=== PATIENT | female | born 1935 | race Caucasian/White ===

== ENCOUNTER 2023-06-27 10:40 | Outpatient (AMB) | payer MEDICARE, SELFPAY ==
--- NOTE | 2023-06-27 10:46 | A.OFFVIS_ITS ---
Intake Vital Signs 06/27/23 10:52 Height 5 ft 6 in Weight 169 lb BMI 27.3 BP 135/69 Blood Pressure Location Lt brachial Position Sitting Pulse 69 Intake Visit Reasons: Chronic Loose stool Intake Note: Yanelis presents in the office as a new patient. CC: Daughter states that she has been having severe diarrhea that has been happening since January. She states it will run through her and she will be constipated and then back to diarrhea. 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 Patient is a resident of a local detention. She resides in [facility]. Patient is accompanied by her daughter. Patient reports that since January of last year she had frequent episodes of loose stools. Patient reports that initially she had loose stools for several weeks. Was given Imodium 2 tabs which caused constipation and patient end up going to ER. Currently patient is not taking any fiber supplements. Tried Metamucil, however patient did not like the taste. Patient denies any melena, hematochezia, unintentional weight loss or ribbon like stools. Frequent loose stools, often associated with cramping like pain, stabbing and squeezing around her house [place]. Patient was diagnosed with diverticulitis in the past. Patient denies any nausea or vomiting. Patient reports that she has fair appetite. Upon reviewing patient's record from detention patient is taking Senokot 2 tablets every evening. She is not taking any fiber. 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 Review of Systems Const Denies weight gain and Denies weight loss ENT Reports no additional complaints, Denies dysphagia and Denies odynophagia Card Reports no additional complaints Resp Reports no additional complaints GI Reports abdominal pain (cramping), Denies belching, Denies melena, Reports bloating, Denies change in bowel habits, Denies dysphagia, Denies excessive flatus, Denies dyspepsia, Denies heartburn, Denies diarrhea, Reports loose stools, Denies nausea, Denies odynophagia and Denies vomiting Reports no additional complaints Musc Reports no additional complaints Neuro Reports no additional complaints Psych Reports no additional complaints Endo Reports no additional complaints Physical Exam Vital Signs: Last Vital Signs Pulse 69 06/27/23 10:52 BP 135/69 06/27/23 10:52 BMI result Body Mass Index 27.3 Const Other: Patient is sitting in a wheelchair General: healthy appearing, no acute distress and well developed Nutritional Appearance: well nourished Orientation/consciousness: patient oriented x3 HEENT Head: Yes normal to inspection, Yes normocephalic and Yes atraumatic Face and sinus: Yes normal facial exam Mouth: Normal oral and palatal mucosa present Throat: Yes posterior oropharynx normal, Yes tonsils normal and Yes uvula midline Eyes General: appearance normal, both eyes and all related structures Neck Neck: Yes normal visual inspection, Yes full ROM and Yes trachea midline Thyroid: Thyroid normal Resp Effort & Inspection: normal respiratory effort, able to speak in complete sentences, no tracheal deviation and symmetric chest movement Auscultation: clear to auscultation bilaterally Cardio Rate: regular rate GI Inspection: Yes normal to inspection and No distended Palpation (GI): Soft to palpation, not firm, nontender and No hepatosplenomegaly present Auscultation: Hyperactive bowel sounds present General: Yes no CVA tenderness Back/Spine/Pelvis Back: no CVA tenderness Skin General skin exam: elasticity normal, turgor normal and dry skin Neuro General: patient oriented x3 Psych Appearance: grossly normal Mental Status: mental status grossly normal Assessment & Plan Assessment & Plan (1) Diarrhea: Code(s): R19.7 - Diarrhea, unspecified Qualifiers: Diarrhea type: functional diarrhea Qualified Code(s): K59.1 - Functional diarrhea (2) Postprandial abdominal bloating: Code(s): R14.0 - Abdominal distension (gaseous) (3) IBS (irritable bowel syndrome): Code(s): K58.9 - Irritable bowel syndrome without diarrhea Qualifiers: Irritable bowel syndrome type: with both diarrhea and constipation Qualified Code(s): K58.2 - Mixed irritable bowel syndrome Plan Continue avoiding dietary triggers like lactose and some of the gluten products specially like bread. Patient will try cell or does bread. Low FODMAP diet discussed with patient. List of food recommended as well as list of food to avoid given to patient. Patient can continue taking Senokot at night time, however she will need to bulk her stools better. Most likely diarrhea caused by not enough fiber. History of diverticulosis/diverticulitis. Recommend to take fiber like Citrucel twice a day with breakfast and dinner to help her bulk stool. Recommendation also for probiotic that can be bought [id number]. Patient will return in 2 months, sooner on as needed basis. Both patient and her daughter are agreeable to plan of care and verbalizes understanding of instructions. They were given the opportunity to ask questions all questions answered. Thank you for allowing me to participate in her care Medications: New methylcellulose (laxative) (Citrucel) 500 mg PO BID 60 tabs 2RF Coding Level of Care Code New Pt Level 4 (00433) Diagnoses Functional diarrhea K59.1 Diarrhea type: functional diarrhea Postprandial abdominal bloating R14.0 Irritable bowel syndrome with both constipation and diarrhea K58.2 Irritable bowel syndrome type: with both diarrhea and constipation Time Spent (min) 45 Comment 30 minutes spent with pt and additional 15 min spent reviewing her records
[2023-06-27 10:52] VITALS: BP 135/69; PULSE 69; BMI 27.3
== END 2023-06-27 13:03 | disposition home or self-care (01) ==
PROVIDERS: PCP Internal Medicine; Visit Provider Nurse Practitioner Family
DX: K59.1 Functional diarrhea (principal); R14.0 Abdominal distension (gaseous); K58.2 Mixed irritable bowel syndrome
CPT/HCPCS: 99204

== ENCOUNTER → 2023-06-27 10:40 | Outpatient (BNVA) | payer MEDICARE, MEDICAID, SELFPAY | PROVIDERS: PCP Internal Medicine; Visit Provider Nurse Practitioner Family | DX: K59.1 Functional diarrhea (principal); K58.2 Mixed irritable bowel syndrome; R14.0 Abdominal distension (gaseous) | CPT/HCPCS: 99202 ==

== ENCOUNTER 2023-08-25 10:12 | Outpatient (REF) | payer MEDICARE, MEDICAID, SELFPAY ==
[2023-08-25 13:06] LABS: Vitamin B12 497 pg/mL (200-900)
[2023-08-30 06:24] LABS: Vitamin D 25-OH, D2 <4 ng/mL; Vitamin D 25-OH, D3 40 ng/mL; Vitamin D 25-OH, Total 40 ng/mL (30-100)
== END 2023-08-25 10:13 | disposition home or self-care (01) ==
LOC: HO.LAB 10:12
PROVIDERS: PCP Internal Medicine; Visit Provider Nurse Practitioner Family
DX: E55.9 Vitamin D deficiency, unspecified (principal); K21.9 Gastro-esophageal reflux disease without esophagitis; K59.1 Functional diarrhea; K58.0 Irritable bowel syndrome with diarrhea
CPT/HCPCS: 36415; 82306; 82607; 82746; 99212

== ENCOUNTER 2023-08-25 10:12 | Outpatient (AMB) | payer MEDICARE, MEDICAID, SELFPAY ==
--- NOTE | 2023-08-25 10:17 | MHC.OFFVIS ---
Intake Vital Signs 08/25/23 10:18 Height 5 ft 6 in BMI Reason not done Patient refused/unable BP 141/64 H Blood Pressure Location Lt brachial Position Sitting Pulse 64 Pulse Source Pulse Oximeter Intake Visit Reasons: follow up Intake Note: Patient here for f/u diarrhea. Last office visit 06-27-23. Taking citrucel. Patient c/o: She states she is still having diarrhea everyday multiple times a day and she doesn't think anything is helping. Pt denies any N/V. Accompanied by: Daughter Allergies oxycodone Allergy (Intermediate, Verified 08/25/23 10:21) shaking Penicillins Allergy (Mild, Verified 08/25/23 10:21) Unknown Sulfa (Sulfonamide Antibiotics) Allergy (Mild, Verified 08/25/23 10:21) Unknown HPI follow up HPI Details LAST VISIT: Diarrhea Postprandial abdominal bloating IBS (irritable bowel syndrome) Plan Continue avoiding dietary triggers like lactose and some of the gluten products specially like bread. Patient will try cell or does bread. Low FODMAP diet discussed with patient. List of food recommended as well as list of food to avoid given to patient. Patient can continue taking Senokot at night time, however she will need to bulk her stools better. Most likely diarrhea caused by not enough fiber. History of diverticulosis/diverticulitis. Recommend to take fiber like Citrucel twice a day with breakfast and dinner to help her bulk stool. Recommendation also for probiotic that can be bought [id number]. Patient will return in 2 months, sooner on as needed basis. Both patient and her daughter are agreeable to plan of care and verbalizes understanding of instructions. They were given the opportunity to ask questions all questions answered. ? Thank you for allowing me to participate in her care Medications New methylcellulose (laxative) (Citrucel) 500 mg PO BID 60 tabs 2RF TODAY'S VISIT Patient is here today for follow-up. Patient reports that she continues to have loose stools. Patient states that she woke up this morning and had diarrhea. Yesterday before noon time patient had several bowel movements. When reviewing patient's medication I noticed that she has been taking Colace and senna. Dulcolax is also on the list. Patient might be overmedicated with laxative. Patient denies any abdominal pain or discomfort. Takes PPI daily and her symptoms of acid reflux are suppressed. Patient denies dyspepsia, dysphagia or odynophagia. Denies melena, hematochezia, unintentional weight loss or ribbon like stools. Patient's only concern is frequent bowel movements. Last month patient was seen in the ER where she was told that this could be a viral component. Patient does not remember if she had CT scan or ultrasound down. Will get records. 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 Social History (Updated 08/25/23 @ 10:23 by Stefanie Pitts MA) Housing: [facility] Alcohol intake: never Patient Tobacco Use Status: Former Tobacco user Review of Systems Const Denies weight gain and Denies weight loss ENT Reports no additional complaints, Denies dysphagia and Denies odynophagia Card Reports no additional complaints Resp Reports no additional complaints GI Denies abdominal pain, Denies belching, Denies melena, Denies bloating, Denies change in bowel habits, Denies dysphagia, Denies excessive flatus, Denies dyspepsia, Denies heartburn, Reports diarrhea, Denies loose stools, Denies nausea, Denies odynophagia and Denies vomiting Reports no additional complaints Musc Reports no additional complaints Neuro Reports no additional complaints Psych Reports no additional complaints Endo Reports no additional complaints Physical Exam Vital Signs: Last Vital Signs Pulse 64 08/25/23 10:18 BP 141/64 H 08/25/23 10:18 Const Other: Patient is sitting in a wheelchair General: healthy appearing, no acute distress and well developed Nutritional Appearance: well nourished Orientation/consciousness: patient oriented x3 HEENT Head: Yes normal to inspection, Yes normocephalic and Yes atraumatic Face and sinus: Yes normal facial exam Mouth: Normal oral and palatal mucosa present Throat: Yes posterior oropharynx normal, Yes tonsils normal and Yes uvula midline Eyes General: appearance normal, both eyes and all related structures Neck Neck: Yes normal visual inspection, Yes full ROM and Yes trachea midline Thyroid: Thyroid normal Resp Effort & Inspection: normal respiratory effort, able to speak in complete sentences, no tracheal deviation and symmetric chest movement Auscultation: clear to auscultation bilaterally Cardio Rate: regular rate GI Inspection: Yes normal to inspection and No distended Palpation (GI): Soft to palpation, not firm, nontender and No hepatosplenomegaly present Auscultation: Hyperactive bowel sounds present General: Yes no CVA tenderness Back/Spine/Pelvis Back: no CVA tenderness Skin General skin exam: elasticity normal, turgor normal and dry skin Neuro General: patient oriented x3 Psych Appearance: grossly normal Mental Status: mental status grossly normal Assessment & Plan Assessment & Plan (1) GERD (gastroesophageal reflux disease): Code(s): K21.9 - Gastro-esophageal reflux disease without esophagitis Qualifiers: Esophagitis presence: esophagitis presence not specified Qualified Code(s): K21.9 - Gastro-esophageal reflux disease without esophagitis (2) Diarrhea: Code(s): R19.7 - Diarrhea, unspecified Qualifiers: Diarrhea type: functional diarrhea Qualified Code(s): K59.1 - Functional diarrhea (3) Postprandial abdominal bloating: Code(s): R14.0 - Abdominal distension (gaseous) (4) IBS (irritable bowel syndrome): Code(s): K58.9 - Irritable bowel syndrome without diarrhea Qualifiers: Irritable bowel syndrome type: with diarrhea Qualified Code(s): K58.0 - Irritable bowel syndrome with diarrhea Plan Patient will continue taking pantoprazole. Continue avoiding lactose. May introduce gluten as patient not having any change after stopping gluten. Please stop all of her likes it except for Citrucel. Increase fiber in her diet. Will do GI panel, C diff, check vitamin B12, folate, vitamin-D. I will see her in 2 months, sooner on as needed basis. Patient is agreeable to this plan and verbalizes understanding of instructions. She was given the opportunity to ask questions and all questions answered. Please get records from [facility] from her ER visit. Thank you for allowing me to participate in her care Orders: Orders Vitamin B12 and Folate Today R19.7 - Diarrhea, unspecified GI Panel Today R19.7 - Diarrhea, unspecified Vitamin D 25-OH (D2 and D3) Today E55.9 - Vitamin D deficiency, unspecified CDiff Gene PCR Today R19.7 - Diarrhea, unspecified Coding Level of Care Code Est Pt Level 3 (05354) Diagnoses Gastroesophageal reflux disease, unspecified whether esophagitis present K21.9 Esophagitis presence: esophagitis presence not specified Functional diarrhea K59.1 Diarrhea type: functional diarrhea Postprandial abdominal bloating R14.0 Irritable bowel syndrome with diarrhea K58.0 Irritable bowel syndrome type: with diarrhea Time Spent (min) 25 Comment 15 minutes spent with patient and additional 10 minutes spent reviewing her records
[2023-08-25 10:18] VITALS: BP 141/64; PULSE 64
== END 2023-08-25 10:48 | disposition home or self-care (01) ==
PROVIDERS: PCP Internal Medicine; Visit Provider Nurse Practitioner Family
DX: K21.9 Gastro-esophageal reflux disease without esophagitis (principal); K58.0 Irritable bowel syndrome with diarrhea
CPT/HCPCS: 99213

== ENCOUNTER 2023-10-27 10:38 | Outpatient (AMB) | payer MEDICARE, MEDICAID, SELFPAY ==
[2023-10-27 10:48] VITALS: BP 144/71; PULSE 84
--- NOTE | 2023-10-27 10:48 | MHC.OFFVIS ---
Vital Signs 10/27/23 10:48 Height 5 ft 6 in BP 144/71 H Blood Pressure Location Lt brachial Position Sitting Pulse 84 Intake Visit Reasons: 2 month follow up Intake Note: Patient presents to in office 2 months follow up of abdominal pain. CC: Patient c/o lower abdominal pain and constipation. Denies having any new GI symptoms today. Allergies oxycodone Allergy (Intermediate, Verified 10/27/23 10:52) shaking Penicillins Allergy (Mild, Verified 10/27/23 10:52) Unknown Sulfa (Sulfonamide Antibiotics) Allergy (Mild, Verified 10/27/23 10:52) Unknown HPI HPI 2 month follow up: Details: LAST VISIT: GERD (gastroesophageal reflux disease) Diarrhea Postprandial abdominal bloating IBS (irritable bowel syndrome) Plan Patient will continue taking pantoprazole. Continue avoiding lactose. May introduce gluten as patient not having any change after stopping gluten. Please stop all of her likes it except for Citrucel. Increase fiber in her diet. Will do GI panel, C diff, check vitamin B12, folate, vitamin-D. I will see her in 2 months, sooner on as needed basis. Patient is agreeable to this plan and verbalizes understanding of instructions. She was given the opportunity to ask questions and all questions answered. Please get records from [facility] from her ER visit. ? Thank you for allowing me to participate in her care Orders Orders Vitamin B12 and Folate Today R19.7 GI Panel Today R19.7 Vitamin D 25-OH (D2 and D3) Today E55.9 CDiff Gene PCR Today R19.7 TODAY'S VISIT Patient is here today for follow-up. Patient is accompanied by her daughter. Patient resides in the assisted in [place]. Reports that she has had issues with her bowels where she was having loose stools. Patient states that she only gets 1 Citrucel a day. This morning patient however received 2 Citrucel tablets. Patient's daughter reports that she noticed that her mom does not want to get dressed and participate in daily activities. Patient is afraid that she is going to have an accident. Patient reports that her stool sample was sent, however we have not received any results. All her blood work was done and it was all normal. Patient denies any melena, hematochezia, unintentional weight loss or ribbon like stools. Patient denies any dyspepsia, dysphagia or odynophagia. Denies any abdominal pain or discomfort. 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 Alcohol intake: never Patient Tobacco Use Status: Former Tobacco user Review of Systems Const Denies weight gain and Denies weight loss ENT Reports no additional complaints, Denies dysphagia and Denies odynophagia Card Reports no additional complaints Resp Reports no additional complaints GI Denies abdominal pain, Denies belching, Denies melena, Reports bloating, Reports constipation, Denies dysphagia, Denies excessive flatus, Denies dyspepsia, Denies heartburn, Reports diarrhea, Denies loose stools, Denies nausea, Denies odynophagia and Denies vomiting Reports no additional complaints Musc Reports no additional complaints Neuro Reports no additional complaints Psych Reports no additional complaints Endo Reports no additional complaints Physical Exam Vital Signs: Last Vital Signs Pulse 84 10/27/23 10:48 BP 144/71 H 10/27/23 10:48 Const Other: Patient is sitting in a wheelchair General: healthy appearing, no acute distress and well developed Nutritional Appearance: well nourished Orientation/consciousness: patient oriented x3 Resp Effort & Inspection: normal respiratory effort, able to speak in complete sentences, no tracheal deviation and symmetric chest movement Auscultation: clear to auscultation bilaterally Cardio Rate: regular rate GI Inspection: Yes normal to inspection and No distended Palpation (GI): Soft to palpation, not firm, nontender and No hepatosplenomegaly present Auscultation: Hyperactive bowel sounds present General: Yes no CVA tenderness Back/Spine/Pelvis Back: no CVA tenderness Skin General skin exam: elasticity normal, turgor normal and dry skin Neuro General: patient oriented x3 Psych Appearance: grossly normal Mental Status: mental status grossly normal Results Reviewed Results Reviewed: Laboratory Tests 08/25/23 11:22 Vitamin B12 497 25-OH Vitamin D Total 40 Folate 11.0 Assessment & Plan Assessment & Plan (1) GERD (gastroesophageal reflux disease): Code(s): K21.9 - Gastro-esophageal reflux disease without esophagitis Category: Medical Qualifiers: Esophagitis presence: esophagitis presence not specified Qualified Code(s): K21.9 - Gastro-esophageal reflux disease without esophagitis (2) Diarrhea: Code(s): R19.7 - Diarrhea, unspecified Qualifiers: Diarrhea type: functional diarrhea Qualified Code(s): K59.1 - Functional diarrhea (3) Postprandial abdominal bloating: Code(s): R14.0 - Abdominal distension (gaseous) (4) IBS (irritable bowel syndrome): Code(s): K58.9 - Irritable bowel syndrome without diarrhea Qualifiers: Irritable bowel syndrome type: with both diarrhea and constipation Qualified Code(s): K58.2 - Mixed irritable bowel syndrome Plan Continue Citrucel daily. Patient can start taking Senokot in the evening to help her move her bowels better. Increase fluid intake. Patient is mostly in her wheelchair. Discussed with patient trying to participate in activities at the assisted. Will call facility to obtain records from her stool studies. I assume they were all normal as patient was never placed on any antibiotic or informed of any abnormalities. Most likely patient has diarrhea is related to not enough fiber and actually being constipated. I will see patient in 6 weeks, sooner on as needed basis. Patient is agreeable to this plan and verbalizes understanding of instructions. She was given the opportunity to ask questions and all questions answered. Thank you for allowing me to participate in her care Medications: New sennosides (Natural Senna Laxative) 8.6 mg PO BEDTIME 90 tabs 3RF constipation K59.00 - Constipation, unspecified Coding Level of Care Code Est Pt Level 3 (63935) Diagnoses Gastroesophageal reflux disease, unspecified whether esophagitis present K21.9 Esophagitis presence: esophagitis presence not specified Functional diarrhea K59.1 Diarrhea type: functional diarrhea Postprandial abdominal bloating R14.0 Irritable bowel syndrome with both constipation and diarrhea K58.2 Irritable bowel syndrome type: with both diarrhea and constipation Time Spent (min) 30 Comment 20 minutes spent with patient and additional 10 minutes spent reviewing her records
== END 2023-10-27 11:34 | disposition home or self-care (01) ==
PROVIDERS: PCP Internal Medicine; Visit Provider Nurse Practitioner Family
DX: K21.9 Gastro-esophageal reflux disease without esophagitis (principal); K59.1 Functional diarrhea; R14.0 Abdominal distension (gaseous); K58.2 Mixed irritable bowel syndrome
CPT/HCPCS: 99213

== ENCOUNTER → 2023-10-27 10:38 | Outpatient (BNVA) | payer MEDICARE, MEDICAID, SELFPAY | PROVIDERS: PCP Internal Medicine; Visit Provider Nurse Practitioner Family | DX: K21.9 Gastro-esophageal reflux disease without esophagitis (principal); K59.1 Functional diarrhea; R14.0 Abdominal distension (gaseous); K58.2 Mixed irritable bowel syndrome; Z79.899 Other long term (current) drug therapy | CPT/HCPCS: 99212 ==

== ENCOUNTER 2023-12-04 11:07 | Outpatient (AMB) | payer MEDICARE, MEDICAID, SELFPAY ==
--- NOTE | 2023-12-04 11:16 | A.OFFVIS_ITS ---
Vital Signs 12/04/23 11:25 Height 5 ft 6 in Weight 176 lb BMI 28.4 BP 102/66 Blood Pressure Location Lt brachial Position Sitting Pulse 134 H Pulse Source Pulse Oximeter Pulse Oximetry (%) 96 Oxygen Delivery Method Room Air Comment Weight has not been completed for approx 1 month via usp. Intake Visit Reasons: 6 weeks IBS Intake Note: Yanelis presents to the office today for a scheduled 6 week FUV. CC: Pt was rx'd senna at their last visit. Pt reports that she has been dealing with increased constipation. Pt has been being monitored by nursing staff. Pt was given suppository yesterday by RN and did not result with any successful BM. Pt family reports last BM was approximately 4 days ago. 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 Patient can start taking Senokot in the evening to help her move her bowels better. Increase fluid intake. Patient is mostly in her wheelchair. Discussed with patient trying [facility]. Will call facility to obtain records from her stool studies. I assume they were all normal as patient was never placed on any antibiotic or informed of any abnormalities. Most likely patient has diarrhea is related to not enough fiber and actually being constipated. I will see patient in 6 weeks, sooner on as needed basis. Patient is agreeable to this plan and verbalizes understanding of instructions. She was given the opportunity to ask questions and all questions answered. ? Thank you for allowing me to participate in her care Medications New sennosides (Natural Senna Laxative) 8.6 mg PO BEDTIME 90 tabs 3RF constipation K59.00 TODAY'S VISIT Patient is here today for follow-up. Patient is accompanied by her 2 daughters. Patient reports that she continues to be constipated. Takes Senokot without improvement. Patient was given milk of magnesia and suppository and no BM for 5 days. Patient's daughters are concern as patient today looks very pale. Patient's heart rate is high in 140s. No documented history of AFib. Patient denies any blood in her stool. Denies any black stool. Denies any nausea or vomiting. Upper extremity edema noted. Right lower extremity mild edema greater than left. Tried vasovagal stimulation to decrease patient's heart rate without success. Lowest heart rate 136. Patient denies any shortness of breath, however respiratory 24. [facility] Medical History GERD (gastroesophageal reflux disease) Surgical History History of surgery on wrist Hx of bilateral hip replacements Hx of total knee replacement Social History Housing: Alf Alcohol intake: never Patient Tobacco Use Status: Former Tobacco user Review of Systems Const Denies weight gain and Denies weight loss ENT Reports no additional complaints, Denies dysphagia and Denies odynophagia Card Reports no additional complaints Resp Reports no additional complaints GI Denies abdominal pain, Denies belching, Denies melena, Denies bloating, Denies change in bowel habits, Reports constipation, Denies dysphagia, Denies excessive flatus, Denies dyspepsia, Denies heartburn, Denies diarrhea, Denies loose stools, Denies nausea, Denies odynophagia and Denies vomiting Reports no additional complaints Musc Reports no additional complaints Neuro Reports no additional complaints Psych Reports no additional complaints Endo Reports no additional complaints Physical Exam Vital Signs: Last Vital Signs Pulse 134 H 12/04/23 11:25 BP 102/66 12/04/23 11:25 Pulse Ox 96 12/04/23 11:25 Oxygen Delivery Method Room Air 12/04/23 11:25 BMI result Body Mass Index 28.4 Const Other: Patient is sitting in a wheelchair, pale General: no acute distress and well developed Nutritional Appearance: well nourished Orientation/consciousness: patient oriented x3 Resp Effort & Inspection: normal respiratory effort, able to speak in complete sentences, no tracheal deviation and symmetric chest movement Auscultation: clear to auscultation bilaterally Cardio Rate: tachycardic (138-142) GI Inspection: Yes normal to inspection and No distended Palpation (GI): Soft to palpation, not firm, nontender and No hepatosplenomegaly present Auscultation: Hyperactive bowel sounds present General: Yes no CVA tenderness Back/Spine/Pelvis Back: no CVA tenderness Skin General skin exam: elasticity normal, turgor normal and dry skin Neuro General: patient oriented x3 Psych Appearance: grossly normal Mental Status: mental status grossly normal Assessment & Plan Assessment & Plan (1) GERD (gastroesophageal reflux disease): Code(s): K21.9 - Gastro-esophageal reflux disease without esophagitis Category: Medical Qualifiers: Esophagitis presence: esophagitis presence not specified Qualified Code(s): K21.9 - Gastro-esophageal reflux disease without esophagitis (2) Postprandial abdominal bloating: Code(s): R14.0 - Abdominal distension (gaseous) (3) IBS (irritable bowel syndrome): Code(s): K58.9 - Irritable bowel syndrome without diarrhea Qualifiers: Irritable bowel syndrome type: with constipation Qualified Code(s): K58.1 - Irritable bowel syndrome with constipation (4) Constipation: Code(s): K59.00 - Constipation, unspecified Qualifiers: Constipation type: slow transit constipation Qualified Code(s): K59.01 - Slow transit constipation (5) Pale discoloration of skin of entire body: Code(s): L81.9 - Disorder of pigmentation, unspecified (6) Tachycardia: Code(s): R00.0 - Tachycardia, unspecified Plan Patient was sent to ED. patient looks pale, heart rate 136-147. No known history of AFib. Concern for anemia. Patient will eventually need to go for colonoscopy. Edema noted to upper extremities as well as bilateral lower extremity right greater than left. Reports to Brigido gillespie RN, patient was brought to ED by certified ophthalmic medical technician. Patient will return to the office in 3 m ont, sooner on as needed basis. She is agreeable to this plan and verbalizes understanding of instructions. She was given the opportunity to ask questions and all questions answered. Thank you for allowing me to participate in her care Medications: New docusate sodium 100 mg PO BID 180 caps 3RF Changed From sennosides (Natural Senna Laxative) 8.6 mg PO BEDTIME 90 tabs 3RF constipation K59.00 - Constipation, unspecified To sennosides (Natural Senna Laxative) 17.2 mg (2 x 8.6 mg) PO BEDTIME 180 tabs 3RF constipation K59.00 - Constipation, unspecified Coding Level of Care Code Est Pt Level 4 (90286) Diagnoses Gastroesophageal reflux disease, unspecified whether esophagitis present K21.9 Esophagitis presence: esophagitis presence not specified Postprandial abdominal bloating R14.0 Irritable bowel syndrome with constipation K58.1 Irritable bowel syndrome type: with constipation Slow transit constipation K59.01 Constipation type: slow transit constipation Pale discoloration of skin of entire body L81.9 Tachycardia R00.0 Time Spent (min) 40 Comment 25 minutes spent with patient and additional 15 minutes spent reviewing her records
[2023-12-04 11:25] VITALS: BP 102/66; PULSE 134; O2SAT 96; BMI 28.4
== END 2023-12-04 11:50 | disposition home or self-care (01) ==
PROVIDERS: PCP Internal Medicine; Visit Provider Nurse Practitioner Family
DX: K21.9 Gastro-esophageal reflux disease without esophagitis (principal); R14.0 Abdominal distension (gaseous); K58.1 Irritable bowel syndrome with constipation; K59.01 Slow transit constipation; L81.9 Disorder of pigmentation, unspecified; R00.0 Tachycardia, unspecified
CPT/HCPCS: 99214

== ENCOUNTER 2023-12-04 11:50 | Inpatient (IN) | payer MEDICARE, MEDICAID, SELFPAY ==
--- NOTE | ~2023-12-04 | CT_ITS ---
EXAMINATION: CT ANGIOGRAM OF THE CHEST WITH AND WITHOUT CONTRAST (CT PULMONARY ANGIOGRAM FOR PE) CLINICAL INFORMATION: Reason for Exam Sinus tachycardia COMPARISON: None available. TECHNIQUE: Prior to contrast administration, noncontrast localization images were obtained. Subsequently, multidetector volumetric imaging was performed from the thoracic inlet to below the diaphragms following the administration of 85 mL Omnipaque 350 intravenous contrast. No contrast reaction reported Sagittal, coronal, and MIP oblique sagittal reformatted images were obtained on the CT workstation, uploaded to PACS, and reviewed. This CT examination was performed using dose optimization techniques as appropriate, variously including the following: *Automated exposure control *Adjustment of mA and/or kV according to patient size (this includes techniques or standardized protocols for targeted exams where dose is matched to indication/reason for exam; i.e. extremities or head) *Use of iterative reconstruction technique Total exam dose-length product 666 mGy-cm FINDINGS: QUALITY OF STUDY/CONTRAST BOLUS: Satisfactory. PULMONARY ARTERIES: No pulmonary emboli. THORACIC AORTA: No aneurysm. LUNG: Moderate emphysematous changes are seen along with a saber-sheath trachea and mild diffuse bronchial thickening. There is a single 4 mm nodule seen in the right middle lobe (9:217). No focal consolidation, worrisome nodules or masses. PLEURA: No pleural effusion or pneumothorax. MEDIASTINUM: Normal heart size. No pericardial effusion. No hilar or mediastinal lymphadenopathy. No evidence of septal bowing or right heart strain. CORONARY ARTERY CALCIFICATION: Moderate CHEST WALL/AXILLA: No axillary or internal mammary lymphadenopathy. OSSEOUS STRUCTURES: There is a compression fracture of the superior endplate of T12. Kyphoplasty changes seen at T5, T7 and T8 mild compression fracture of T4. UPPER ABDOMEN: There are bilateral water density benign adrenal adenomas. There is a benign right renal cyst which needs no follow-up and cholecystectomy. Please see report of CT abdomen and pelvis performed contemporaneously. No reflux of contrast into the hepatic veins to suggest elevated right heart pressures. CT/CT angio chest PE protocol IMPRESSION: 1. No evidence of pulmonary emboli. 2. Moderate emphysema with saber-sheath trachea and mild diffuse bronchial thickening. 3. 4 mm right middle lobe nodule. 4. Bilateral benign adrenal adenomas. VTE: negative.
--- NOTE | ~2023-12-04 | CT_ITS ---
EXAMINATION: CT ABDOMEN AND PELVIS WITH CONTRAST CLINICAL INFORMATION: Sinus tachycardia COMPARISON: None available. TECHNIQUE: Multidetector volumetric images were obtained from the superior aspect of the liver through the pubic symphysis following administration 85 mL of Omnipaque 350 intravenous contrast. Sagittal and coronal reformatted images were obtained on the technologist's workstation. Oral contrast: No This CT examination was performed using dose optimization techniques as appropriate, variously including the following: *Automated exposure control *Adjustment of mA and/or kV according to patient size (this includes techniques or standardized protocols for targeted exams where dose is matched to indication/reason for exam; i.e. extremities or head) *Use of iterative reconstruction technique DLP: 313 mGy-cm FINDINGS: LUNG BASES: See CT chest performed contemporaneously LIVER, GALLBLADDER, AND BILIARY TREE: The liver is normal in size, shape, and attenuation. No focal hepatic lesion or biliary ductal dilatation is present. Status post cholecystectomy. PANCREAS: Unremarkable. SPLEEN: Unremarkable. ADRENAL GLANDS: There are bilateral adrenal masses seen measuring about 2 cm in size each. On the chest CT these measure water density although on the current study they measure higher secondary to portal venous phase imaging. These are consistent with benign adenomas and need no additional imaging or follow-up. KIDNEYS AND URETERS: The kidneys are normal in size, shape, and attenuation. No hydronephrosis, hydroureter, or calculi seen. No perinephric stranding. BLADDER: Unremarkable. GASTROINTESTINAL TRACT: The small and large bowel are unremarkable. The appendix is not seen but there is no evidence of appendicitis evidence of appendicitis. ABDOMINAL WALL: No significant hernia is appreciated. LYMPH NODES: No retroperitoneal lymphadenopathy. VASCULAR: Calcific atherosclerotic changes are present in the aorta and iliofemoral vessels. There is no evidence of an abdominal aortic aneurysm. PELVIC VISCERA: The uterus and adnexa are unremarkable. OSSEOUS STRUCTURES: Degenerative changes are seen from L4 through S1. Kyphoplasty cement is present L2 and L3. There are compression fractures superior endplates of T12 and L1. Bilateral total hip prostheses are present. No acute fractures. CT/CT abdomen pelvis w IV con IMPRESSION: 1. A cause for the patient's sinus tachycardia has not been found. 2. Incidental note made of benign adrenal adenomas, cholecystectomy, degenerative changes in the spine with kyphoplasty changes and bilateral total hip prostheses. Fleischner guidelines were followed.
--- NOTE | 2023-12-04 11:53 | ECG_ITS ---
Test Reason : TACHYCARDIA Blood Pressure : / mmHG Vent. Rate : 137 BPM Atrial Rate : 137 BPM P-R Int : 178 ms QRS Dur : 126 ms QT Int : 274 ms P-R-T Axes : 063 -02 165 degrees QTc Int : 413 ms Atrial flutter with 2 to 1 block versus Atrial tachycardia Left atrial enlargement Left bundle branch block Abnormal ECG No previous ECGs available Referred By: Generic ED Physician Electronically Signed By:MARICRUZ SAWYER MD
[2023-12-04 12:07] VITALS: BP 84/59; PULSE 134; RESP 16; TEMP 36.6; O2SAT 98; BMI 27.6
--- NOTE | 2023-12-04 12:07 | ED_ITS ---
HPI - Weakness General Chief complaint: Arrhythmia/Palpitations Stated complaint: trans from gastro pt in tachycardia Time Seen by Provider: 12/04/23 12:08 History of Present Illness ED Provider: Dr. Fay HPI Narrative: 88 y/o F patient; PMH paroxysmal atrial fibrillation (not on anticoagulation or rate control), HTN, HLD, COPD (ex-smoker); presents from routine GI appointment for constipation with report of tachycardia, fatigue/weakness, and pallor. The patient states since June she has unintentionally lost approx 15lb. She states she has noticed a sharp decline in her appetite during this time. She endorses a constant feeling of the need to defecate without the ability to have a bowel movement. Last bowel movement was small 4 days ago. She denies noticing any melena or hematochezia. She denies hx of GI bleed. Last colonoscopy was over 30 years ago. Otherwise reports occasional right upper quadrant abdominal discomfort. Hx cholecystectomy and appendectomy. Code Status: DNR/DNI Related Data Home Medications ?Medication ?Instructions ?Recorded ?Confirmed acetaminophen 500 mg tablet 500 mg PO Q6H PRN 06/27/23 alendronate 70 mg tablet 70 mg PO QWEEK 06/27/23 aluminum-mag hydroxide-simethicone 10 ml PO QID PRN 06/27/23 200 mg-200 mg-20 mg/5 mL oral susp amlodipine 5 mg tablet 5 mg PO DAILY 06/27/23 calcium phos,tribasic 260 mg-D3 25 tab PO 06/27/23 mcg-herbal 50 mg chewable tablet (Alive Calcium-Vitamin D3) clonazepam 1 mg tablet 1 mg PO BID 06/27/23 furosemide 20 mg tablet 20 mg PO DAILY 06/27/23 gabapentin 100 mg capsule 100 mg PO TID 06/27/23 lisinopril 30 mg tablet 30 mg PO DAILY 06/27/23 magnesium hydroxide 400 mg/5 mL 5 ml PO BEDTIME 06/27/23 oral suspension (Milk of Magnesia) melatonin 3 mg capsule 3 mg PO BEDTIME PRN 06/27/23 mirtazapine 7.5 mg tablet 7.5 mg PO BEDTIME 06/27/23 nystatin 100,000 unit/gram topical 1 appl topical BID 06/27/23 cream pantoprazole 20 mg tablet,delayed 20 mg PO DAILY 06/27/23 release salmeterol 50 mcg/dose blister 1 inh inhalation BID 06/27/23 powder for inhalation (Serevent Diskus) simvastatin 20 mg tablet 20 mg PO BEDTIME 06/27/23 hydroxyzine HCl 25 mg tablet 25 mg PO TID 08/25/23 nortriptyline 10 mg capsule 10 mg PO BEDTIME 08/25/23 nortriptyline 25 mg capsule 25 mg PO BEDTIME 08/25/23 nystatin 100,000 unit/gram topical 1 appl topical BID-TID 08/25/23 powder peg [id number] 1 1 drp ophthalmic (eye) BID-QID PRN 08/25/23 %-0.2 %-0.2 % eye drops (Artificial Tears ([id number])) albuterol sulfate 90 mcg/actuation inhalation 12/04/23 aerosol inhaler Previous Rx's ?Medication ?Instructions ?Recorded methylcellulose (laxative) 500 mg 500 mg PO BID #60 tabs 06/27/23 tablet (Citrucel) methylcellulose (laxative) 2 g PO BID #479 grams 07/05/23 (Citrucel Sugar Free oral powder) docusate sodium 100 mg capsule 100 mg PO BID #180 caps 12/04/23 sennosides 8.6 mg tablet (Natural 17.2 mg (2 x 8.6 mg) PO BEDTIME 12/04/23 Senna Laxative) constipation #180 tabs Allergies Allergy/AdvReac Type Severity Reaction Status Date / Time oxycodone Allergy Intermediate shaking Verified 12/04/23 12:11 Penicillins Allergy Mild Unknown Verified 12/04/23 12:11 Sulfa (Sulfonamide Allergy Mild Unknown Verified 12/04/23 12:11 Antibiotics) Review of Systems 2 Review of Systems: Yes all other systems are reviewed and are negative PMFSH Past Medical History Attestation statement: The following information was validated with the patient. Source: unable to obtain Medical History GERD (gastroesophageal reflux disease) Surgical History History of surgery on wrist Hx of bilateral hip replacements Hx of total knee replacement Social History Social History Housing: [facility] Alcohol intake: never Patient Tobacco Use Status: Former Tobacco user Advance Directives: Yes Advance Directives Information Provided: No Advance Directives on File: No Physical Exam 2 Vital Signs: Vital Signs: Last Vital Signs Temp 97.1 F 12/04/23 15:28 Pulse 86 12/04/23 15:28 Resp 16 12/04/23 15:28 BP 135/84 12/04/23 15:28 Pulse Ox 98 12/04/23 15:28 O2 Del Method Room Air 12/04/23 15:28 BMI result Body Mass Index 27.6 Patient is in a rapid tachycardia, normotensive (though initially hypotensive in triage), and afebrile. Const: Other: Pale in appearance HEENT: Head: Yes normal to inspection and Yes atraumatic Eyes: General: appearance normal, both eyes and all related structures P upils: Equal, round and reactive pupils present EOM: EOMs intact bilaterally Neck: Neck: Yes normal visual inspection, Yes full ROM, Yes supple and No tender Chest: Chest palpation & inspection: normal inspection of the chest and normal palpation of entire chest wall Resp: Effort & Inspection: normal respiratory effort, no cough and no respiratory distress Auscultation: clear to auscultation bilaterally Cardio: Rate: tachycardic Rhythm: regular rhythm Peripheral pulses: P eripheral pulses 2+ throughout GI: Other: Mild epigastric abdominal tenderness Inspection: No distended Palpation (GI): Soft to palpation, not firm, Tenderness to palpation present (GI), no guarding and not rigid Auscultation: normal bowel sounds : General: Yes no CVA tenderness Back/Spine/Pelvis: Back: no CVA tenderness Neuro: Cranial nerves: Yes Equal, round and reactive pupils present Course Course Course Narrative: This is a rapid medical exam completed by Skye ABADN: Additional HPI, ROS, PE not included below will be deferred to primary provider. From the GI office for concerns for hypotension, weakness, and high heart rate. Several days of constipation. Suppository given yesterday with no bowel movement. States that she has been feeling unwell for the last two weeks and feels like she has to move her bowels. C/O RUQ abdominal pain, s/p cholecystectomy and appendectomy Reevaluation(s) Reevaluation #1: Patient seen immediately. Ordered for 1L IVF. Patient's BP improved to 120s systolic on stretcher, continues to have HR ST versus a flutter versus 2:1 block in the 130s. Ordered for laboratory studies, CXR, and CTA Chest with run-off Abdomen/Pelvis. Patient and daughters at bedside confirm patient is DNR/DNI. Time: 14:17 Reevaluation #2: Patient re-evaluated, now in irregular rhythm without tachycardia. Laboratory studies with: Elevated troponin - suspect demand 2/2 to rate. Patient without chest pain or SOB. Still with generalized fatigue/weakness. Remainder of labs unremarkable. CTA Chest with Abdomen/Pelvis without significant abnormalities. Second troponin continues to rise slightly- provided ASA 324mg PO. Discussed with Cardiology possible atrial tachycardia versus 2:1 a flutter - recommend ECHO, cardizem, and eliquis. Plan: Admit for ACS work up Condition: Stable Medications Administered Discontinued Medications Generic Name Dose Route Start Last Admin Trade Name Freq PRN Reason Stop Dose Admin Aspirin 324 mg 12/04/23 15:11 12/04/23 15:38 Aspirin 81 Mg Tab.Chew PO 12/04/23 15:12 324 mg ONCE ONE Administration Sodium Chloride 1,000 mls @ 999 mls/hr 12/04/23 12:15 12/04/23 15:13 Ns IV 12/04/23 13:15 Infused .Q1H1M STEPHANIE Infusion Medical Decision Making Lab Data 12/04/23 12:34 12/04/23 12:34 Labs: Lab Results 12/04/23 12/04/23 12/04/23 Range/Units 12:34 12:46 14:39 WBC 8.9 (4.8-10.8) X10*3/uL RBC 4.55 (4.20-5.50) X10*6/uL Hgb 14.8 (12.0-16.0) g/dl Hct 42.1 (37.0-47.0) % MCV 92.5 (80.0-98.0) fL MCH 32.5 (27.0-33.0) pg MCHC 35.2 H (31.0-35.0) g/dl RDW 12.9 (11.0-16.0) % Plt Count 213 (160-400) X10*3/uL MPV 10.0 (9.4-12.3) fL Immature Gran % (Auto) 0.3 (0.0-0.4) % Neut % (Auto) 72.0 (45-73) % Lymph % (Auto) 20.5 (20-40) % Wheeler % (Auto) 5.7 (2-11) % Eos % (Auto) 0.6 (0-4) % Baso % (Auto) 0.9 (0-2) % Lymph # (Auto) 1.8 (1.2-4.9) X10*3/uL Wheeler # (Auto) 0.5 (0.1-1.2) X10*3/uL Eos # (Auto) 0.1 (0.0-0.4) X10*3/uL Baso # (Auto) 0.1 (0.0-0.2) X10*3/uL Abs Immat Gran (auto) 0.03 (0.00-0.03) X10*3/uL Absolute Neuts (auto) 6.4 (2.0-8.3) x10*3/uL Absolute Nucleated RBC 0.000 (0.0-0.012) X10*3/uL Nucleated RBC % (auto) 0.0 (0.0-0.2) /100WBC Sodium 131 L (135-145) mmol/L Potassium 4.7 (3.3-5.1) mmol/L Chloride 96 (96-108) mmol/L Carbon Dioxide 26 (22-29) mmol/L Anion Gap 14 (12-20) BUN 9 (9-16) mg/dL Creatinine 0.71 (0.5-1.4) mg/dL Estim Creat Clear Calc 59.5 Estimated GFR > 60 Random Glucose 104 (60-115) mg/dL Lactic Acid 1.6 (0.5-2.0) mmol/L Calcium 9.6 (8.4-10.2) mg/dL Magnesium 2.0 (1.6-2.6) mg/dL Total Bilirubin 1.0 (0.0-1.0) mg/dL Direct Bilirubin 0.3 (0.0-0.5) mg/dL AST 25 (5-31) U/L ALT 15 (0-31) U/L Alkaline Phosphatase 80 (39-117) U/L Troponin I High Sens 20.6 H 25.4 H (<3.5-17.0) ng/L B-Natriuretic Peptide 146 H (<100) pg/mL Total Protein 8.2 H (6.5-8.0) g/dL Albumin 4.3 (3.5-5.0) g/dL Lipase 34 (8-78) U/L Influenza Type A (PCR) NEGATIVE (Negative) Influenza Type B (PCR) NEGATIVE (Negative) RSV RNA Qual (PCR) NEGATIVE (Negative) SARS-CoV-2 RNA (RT-PCR) NEGATIVE (Negative) Independent Interpretation I performed an independent interpretation of an: EKG Interpretation: ST 137BPM with LBBB, no prior EKG for comparison Radiology Impression Discussion of test interpretation with radiology: I have reviewed the radiologist's reading. Radiologist Impression: EXAMINATION: CT ANGIOGRAM OF THE CHEST WITH AND WITHOUT CONTRAST (CT PULMONARY ANGIOGRAM FOR PE) CLINICAL INFORMATION: Reason for Exam Sinus tachycardia COMPARISON: None available. TECHNIQUE: Prior to contrast administration, noncontrast localization images were obtained. Subsequently, multidetector volumetric imaging was performed from the thoracic inlet to below the diaphragms following the administration of 85 mL Omnipaque 350 intravenous contrast. No contrast reaction reported Sagittal, coronal, and MIP oblique sagittal reformatted images were obtained on the CT workstation, uploaded to PACS, and reviewed. This CT examination was performed using dose optimization techniques as appropriate, variously including the following: *Automated exposure control *Adjustment of mA and/or kV according to patient size (this includes techniques or standardized protocols for targeted exams where dose is matched to indication/reason for exam; i.e. extremities or head) *Use of iterative reconstruction technique Total exam dose-length product 666 mGy-cm FINDINGS: QUALITY OF STUDY/CONTRAST BOLUS: Satisfactory. PULMONARY ARTERIES: No pulmonary emboli. THORACIC AORTA: No aneurysm. LUNG: Moderate emphysematous changes are seen along with a saber-sheath trachea and mild diffuse bronchial thickening. There is a single 4 mm nodule seen in the right middle lobe (9:217). No focal consolidation, worrisome nodules or masses. PLEURA: No pleural effusion or pneumothorax. MEDIASTINUM: Normal heart size. No pericardial effusion. No hilar or mediastinal lymphadenopathy. No evidence of septal bowing or right heart strain. CORONARY ARTERY CALCIFICATION: Moderate CHEST WALL/AXILLA: No axillary or internal mammary lymphadenopathy. OSSEOUS STRUCTURES: There is a compression fracture of the superior endplate of T12. Kyphoplasty changes seen at T5, T7 and T8 mild compression fracture of T4. UPPER ABDOMEN: There are bilateral water density benign adrenal adenomas. There is a benign right renal cyst which needs no follow-up and cholecystectomy. Please see report of CT abdomen and pelvis performed contemporaneously. No reflux of contrast into the hepatic veins to suggest elevated right heart pressures. CT/CT angio chest PE protocol IMPRESSION: 1. No evidence of pulmonary emboli. 2. Moderate emphysema with saber-sheath trachea and mild diffuse bronchial thickening. 3. 4 mm right middle lobe nodule. 4. Bilateral benign adrenal adenomas. VTE: negative. EXAMINATION: CT ABDOMEN AND PELVIS WITH CONTRAST CLINICAL INFORMATION: Sinus tachycardia COMPARISON: None available. TECHNIQUE: Multidetector volumetric images were obtained from the superior aspect of the liver through the pubic symphysis following administration 85 mL of Omnipaque 350 intravenous contrast. Sagittal and coronal reformatted images were obtained on the technologist's workstation. Oral contrast: No This CT examination was performed using dose optimization techniques as appropriate, variously including the following: *Automated exposure control *Adjustment of mA and/or kV according to patient size (this includes techniques or standardized protocols for targeted exams where dose is matched to indication/reason for exam; i.e. extremities or head) *Use of iterative reconstruction technique DLP: 313 mGy-cm FINDINGS: LUNG BASES: See CT chest performed contemporaneously LIVER, GALLBLADDER, AND BILIARY TREE: The liver is normal in size, shape, and attenuation. No focal hepatic lesion or biliary ductal dilatation is present. Status post cholecystectomy. PANCREAS: Unremarkable. SPLEEN: Unremarkable. ADRENAL GLANDS: There are bilateral adrenal masses seen measuring about 2 cm in size each. On the chest CT these measure water density although on the current study they measure higher secondary to portal venous phase imaging. These are consistent with benign adenomas and need no additional imaging or follow-up. KIDNEYS AND URETERS: The kidneys are normal in size, shape, and attenuation. No hydronephrosis, hydroureter, or calculi seen. No perinephric stranding. BLADDER: Unremarkable. GASTROINTESTINAL TRACT: The small and large bowel are unremarkable. The appendix is not seen but there is no evidence of appendicitis evidence of appendicitis. ABDOMINAL WALL: No significant hernia is appreciated. LYMPH NODES: No retroperitoneal lymphadenopathy. VASCULAR: Calcific atherosclerotic changes are present in the aorta and iliofemoral vessels. There is no evidence of an abdominal aortic aneurysm. PELVIC VISCERA: The uterus and adnexa are unremarkable. OSSEOUS STRUCTURES: Degenerative changes are seen from L4 through S1. Kyphoplasty cement is present L2 and L3. There are compression fractures superior endplates of T12 and L1. Bilateral total hip prostheses are present. No acute fractures. CT/CT abdomen pelvis w IV con IMPRESSION: 1. A cause for the patient's sinus tachycardia has not been found. 2. Incidental note made of benign adrenal adenomas, cholecystectomy, degenerative changes in the spine with kyphoplasty changes and bilateral total hip prostheses. Fleischner guidelines were followed. Discharge Plan Discharge Clinical Impression: Tachycardia, Elevated troponin Patient Disposition: Admitted As Inpatient Print Language: Hungarian
[2023-12-04] MEDS: 0.9 % Sodium Chloride 1,000 ML 999 ML IV (12:39)
[2023-12-04 12:40] LABS: MANUAL DIFF FLAG NO
[2023-12-04 12:42] LABS: Basophils Absolute Auto 0.1 X10*3/uL (0.0-0.2); Basophils Percent Auto 0.9 % (0-2); Eosinophils Absolute Auto 0.1 X10*3/uL (0.0-0.4); Eosinophils Percent Auto 0.6 % (0-4); Hematocrit 42.1 % (37.0-47.0); Hemoglobin 14.8 g/dl (12.0-16.0); Imm Gran Abs Auto 0.03 X10*3/uL (0.00-0.03); Imm Gran Pct Auto 0.3 % (0.0-0.4); Lymphocytes Absolute Auto 1.8 X10*3/uL (1.2-4.9); Lymphocytes Percent Auto 20.5 % (20-40); Mean Corpuscular HGB Conc 35.2 g/dl (31.0-35.0); Mean Corpuscular Hemoglobin 32.5 pg (27.0-33.0); Mean Corpuscular Volume 92.5 fL (80.0-98.0); Monocytes Absolute Auto 0.5 X10*3/uL (0.1-1.2); Monocytes Percent Auto 5.7 % (2-11); Neutrophils Absolute Auto 6.4 x10*3/uL (2.0-8.3); Platelet Count 213 X10*3/uL (160-400); Red Blood Count 4.55 X10*6/uL (4.20-5.50); Red Cell Distribution Width 12.9 % (11.0-16.0); White Blood Count 8.9 X10*3/uL (4.8-10.8)
[2023-12-04 12:54] LABS: Lactic Acid 1.6 mmol/L (0.5-2.0)
[2023-12-04 12:59] LABS: Alanine Aminotransferase 15 U/L (0-31); Albumin Level 4.3 g/dL (3.5-5.0); Alkaline Phosphatase 80 U/L (39-117); Anion Gap 14 (12-20); Aspartate Amino Transferase 25 U/L (5-31); Bilirubin Direct 0.3 mg/dL (0.0-0.5); Blood Urea Nitrogen 9 mg/dL (9-16); Calcium 9.6 mg/dL (8.4-10.2); Carbon Dioxide 26 mmol/L (22-29); Chloride 96 mmol/L (96-108); Creatinine Clr Calc Pharmacy 59.5; Estimated Glomerular Filt Rate > 60; Glucose Random 104 mg/dL (60-115); Lipase 34 U/L (8-78); Potassium 4.7 mmol/L (3.3-5.1); Sodium 131 mmol/L (135-145); Total Protein 8.2 g/dL (6.5-8.0)
[2023-12-04 13:04] LABS: Troponin-I High Sensitivity 20.6 ng/L (<3.5-17.0)
--- NOTE | 2023-12-04 13:53 | PC.NURSE ---
patient noted to have converted out of SVT to normal sinus rhythm rate in the 80s
[2023-12-04 13:54] LABS: Influenza A PCR NEGATIVE (Negative); Influenza B PCR NEGATIVE (Negative); Resp Syncy Virus RNA Qual PCR NEGATIVE (Negative); SARS COV2 PCR INHOUSE NEGATIVE (Negative)
--- NOTE | 2023-12-04 14:16 | ECG_ITS ---
Test Reason : CHANGE IN RHYTM Blood Pressure : / mmHG Vent. Rate : 075 BPM Atrial Rate : 075 BPM P-R Int : 164 ms QRS Dur : 130 ms QT Int : 416 ms P-R-T Axes : 049 001 170 degrees QTc Int : 464 ms Sinus rhythm with Premature supraventricular complexes Left bundle branch block Abnormal ECG When compared with ECG of 04-DEC-2023 11:57, Premature supraventricular complexes are now Present Vent. rate has decreased BY [address] less depressed in Lateral leads Referred By: Osiris Fay Electronically Signed By:Davis Bonilla
[2023-12-04 14:53] LABS: B Type Natriuretic Peptide 146 pg/mL (<100)
[2023-12-04 15:09] LABS: Troponin-I High Sensitivity 25.4 ng/L (<3.5-17.0)
[2023-12-04 15:28] VITALS: BP 135/84; PULSE 86; RESP 16; TEMP 36.2; O2SAT 98
[2023-12-04] MEDS: Aspirin 81 MG TAB.CHEW 324 MG PO (15:38)
--- NOTE | 2023-12-04 15:52 | PC.NURSE ---
patient found to be incontinent of urine, patient cleand up, new pads and blankets. purewick in place
--- NOTE | 2023-12-04 16:44 | P.HPHOSP_ITS ---
History of Present Illness Date of Service: 12/04/23 Attending physician on admission: Basilio Triplett Chief Complaint: weakness, fatigue, constipation 88 year old female with history of gerd, unspecified HF, htn, hld, copd presented to the ED from GI office where she was being seen for chronic alternating diarrhea/constipation. While in GI, pt was noted to be pale and hypotensive to 86/49 with HR 130s-140s. The patient reports she has been feeling generally unwell for several months, depressed, not coming out of her room [facility] at the [facility]. She had been having 4-5 episodes of diarrhea daily but now experiencing constipation with no bm in 4 days despite senna and suppository last night. No fevers, chills, recent illness, abd pain, n/v/ melena, hematazchezia, sob, lightheadedness, syncope, palpitations, or chest pain. Has been given 1L IVF with improvement in bp to 135/84 on admissiona nd HR 86. No leukocytosis or anemia. Renal fx and lytes normla except Na 131. Initial trop 20.6, repeat 25.4. BNP 146. Negative for covid, flu, rsv. CT abdomen/pelvis negative for any acute abnormality. CTA chest negative for PE which shows moderate emphysema with saber sheath trachea and mild diffuse bronchial thickening and 4 mm right middle lobe nodule with bilateral benign adrenal adenomas. In the ED, given 324 mg aspirin and 1 L IV NS. Review of Systems 2 Review of Systems: Yes all other systems are reviewed and are negative [facility] Medical History Heart failure COPD (chronic obstructive pulmonary disease) HLD (hyperlipidemia) HTN (hypertension) GERD (gastroesophageal reflux disease) Surgical History History of surgery on wrist Hx of bilateral hip replacements Hx of total knee replacement Social History Housing: [facility] Alcohol intake: never Patient Tobacco Use Status: Former Tobacco user Advance Directives: Yes Advance Directives Information Provided: No Advance Directives on File: No Meds Allergies Allergy/AdvReac Type Severity Reaction Status Date / Time oxycodone Allergy Intermediate shaking Verified 12/04/23 12:11 Penicillins Allergy Mild Unknown Verified 12/04/23 12:11 Sulfa (Sulfonamide Allergy Mild Unknown Verified 12/04/23 12:11 Antibiotics) Active Medications: Current Medications Acetaminophen (Acetaminophen 325 Mg Tablet) 650 mg PO Q6H PRN PRN Reason: Pain, Mild (Pain Scale 1-3), fever or headache Apixaban (Apixaban 5 Mg Tablet) 5 mg PO BID [facility] Calcium Carbonate (Calcium Carbonate 750 Mg Tab.Chew) 750 mg PO Q4H PRN PRN Reason: Heartburn Diltiazem HCl (Diltiazem Hcl Cd 120 Mg Cap.Er.Deg) 120 mg PO DAILY STEPHANIE; Protocol Magnesium Hydroxide (Milk Of Magnesia 30 Ml Oral.Susp) 30 ml PO DAILY PRN PRN Reason: Constipation Melatonin (Melatonin 3 Mg Tablet) 6 mg PO BEDTIME PRN PRN Reason: Insomnia Polyethylene Glycol (Polyethylene Glycol 3350 17 Gm Powd.Pack) 17 gm PO DAILY [facility] Sodium Chloride (0.9 % Sodium Chloride Flush 3 Ml Syringe) 3 ml IVFLUSH QSHIFT [facility] Home Medications ?Medication ?Instructions ?Recorded ?Confirmed ?Last Taken ?Type acetaminophen 500 mg tablet 500 mg PO Q6H PRN Fever Or Pain 06/27/23 Unknown History alendronate 70 mg tablet 70 mg PO SA 06/27/23 12/04/23 History aluminum-mag hydroxide-simethicone 10 ml PO QID PRN Constipation 06/27/23 Unknown History 200 mg-200 mg-20 mg/5 mL oral susp amlodipine 5 mg tablet 5 mg PO DAILY 06/27/23 12/04/23 History clonazepam 1 mg tablet 1 mg PO BID 06/27/23 12/04/23 History furosemide 20 mg tablet 20 mg PO DAILY 06/27/23 12/04/23 History gabapentin 100 mg capsule 100 mg PO TID 06/27/23 12/04/23 History lisinopril 30 mg tablet 30 mg PO DAILY 06/27/23 12/04/23 History magnesium hydroxide 400 mg/5 mL 5 ml PO BEDTIME PRN Constipation 06/27/23 Unknown History oral suspension (Milk of Magnesia) mirtazapine 7.5 mg tablet 7.5 mg PO BEDTIME 06/27/23 12/04/23 History pantoprazole 20 mg tablet,delayed 20 mg PO DAILY@0630 06/27/23 12/04/23 History release salmeterol 50 mcg/dose blister 1 inh inhalation BID 06/27/23 12/04/23 History powder for inhalation (Serevent Diskus) simvastatin 20 mg tablet 20 mg PO BEDTIME 06/27/23 12/04/23 History hydroxyzine HCl 25 mg tablet 25 mg PO BID 08/25/23 12/04/23 History nortriptyline 25 mg capsule 25 mg PO BEDTIME 08/25/23 12/04/23 History peg [id number] 1 1 drp ophthalmic (eye) BID-QID PRN 08/25/23 12/04/23 History %-0.2 %-0.2 % eye drops Dry Eye(S) (Artificial Tears ([id number])) albuterol sulfate 90 mcg/actuation 1 - 2 puff inhalation DAILY PRN 12/04/23 Unknown History aerosol inhaler Shortness Of Breath Or Wheezing lidocaine 4 % topical patch 1 patch topical DAILY 12/04/23 12/04/23 12/04/23 History methylcellulose (laxative) 500 mg 500 mg PO BID PRN Constipation 12/04/23 Unknown History tablet (Citrucel) Physical Exam 2 Vital Signs and Narrative: Vital Signs: Last Vital Signs Temp 97.1 F 12/04/23 15:28 Pulse 86 12/04/23 15:28 Resp 16 12/04/23 15:28 BP 135/84 12/04/23 15:28 Pulse Ox 98 12/04/23 15:28 O2 Del Method Room Air 12/04/23 15:28 BMI result Body Mass Index 27.6 Constitutional - Awake and Alert, No apparent distress Eyes - PERRLA, EOMI Cardiovascular - S1S2, RRR, No edema Respiratory - Normal lung expansion, Normal respiratory effort, No respiratory distress, CTA bilaterally Gastrointestinal - NT / ND; +BS; No rebound or guarding Extremities - no calf tenderness bilaterally, no swelling Skin - Warm/Dry Neurological - Alert & oriented x3 Psychological - Appropriate affect Results Labs 12/04/23 12:34 12/04/23 12:34 Labs: Laboratory Results - last 24 hr 12/04/23 12/04/23 12/04/23 12:34 12:46 14:39 MCV 92.5 MCH 32.5 MCHC 35.2 H RDW 12.9 Plt Count 213 MPV 10.0 Immature Gran % (Auto) 0.3 Neut % (Auto) 72.0 Lymph % (Auto) 20.5 [place] % (Auto) 5.7 Eos % (Auto) 0.6 Baso % (Auto) 0.9 Lymph # (Auto) 1.8 [place] # (Auto) 0.5 Eos # (Auto) 0.1 Baso # (Auto) 0.1 Abs Immat Gran (auto) 0.03 Absolute Neuts (auto) 6.4 Absolute Nucleated RBC 0.000 Nucleated RBC % (auto) 0.0 Anion Gap 14 Estim Creat Clear Calc 59.5 Estimated GFR > 60 Random Glucose 104 Lactic Acid 1.6 Calcium 9.6 Magnesium 2.0 Total Bilirubin 1.0 Direct Bilirubin 0.3 AST 25 ALT 15 Alkaline Phosphatase 80 Troponin I High Sens 20.6 H 25.4 H B-Natriuretic Peptide 146 H Total Protein 8.2 H Albumin 4.3 Lipase 34 Influenza Type A (PCR) NEGATIVE Influenza Type B (PCR) NEGATIVE RSV RNA Qual (PCR) NEGATIVE SARS-CoV-2 RNA (RT-PCR) NEGATIVE Imaging Radiologist's Impressions: Impressions Abdomen/Pelvis CT 12/04/23 13:37 IMPRESSION: 1. A cause for the patient's sinus tachycardia has not been found. 2. Incidental note made of benign adrenal adenomas, cholecystectomy, degenerative changes in the spine with kyphoplasty changes and bilateral total hip prostheses. Fleischner guidelines were followed. Chest CTA 12/04/23 13:37 IMPRESSION: 1. No evidence of pulmonary emboli. 2. Moderate emphysema with saber-sheath trachea and mild diffuse bronchial thickening. 3. 4 mm right middle lobe nodule. 4. Bilateral benign adrenal adenomas. VTE: negative. Assessment and Plan (1) New onset atrial flutter: Status: Acute Plan 88 year old female with history of gerd, unspecified HF, htn, hld, copd admitted for new onset atrial flutter with rvr #New onset atrial flutter with rvr- resolved on admission -initially tachycardic 130-140s and hypotensive, resolved with ivf -eliquis 5mg bid- no contraindication to ac -initiate diltiazem 120 cd am -cardiac diet -echo -cardiology consult -r/o infection as cause for new onset flutter- UA pending. CTA chest and abd pelvis negative for acute abnormality, negative covid, flu -monitor on telemetry #Acute hypotension -r/t above, resolved on admission following ivf #Elevated trops -initial 20-->25 -likely rate related -echo -cardiology consult # constipation -continue senna, Citrucel. Add MiraLax. #Unspecified hf -no echo available, reported by LTC -cotninue lasix po #HTN -continue amlodipine, lasix, lisinopril #COPD -no acute exacerbation -continue maintenance inhalers, albuterol p.r.n. # GERD -PPI DVT prophylaxis-Eliquis -DNR/DNI HCP-daughter Allegra Miles [phone] Patient requires inpatient stay at least 2 midnights for management of new onset atrial flutter requiring close cardiac monitoring, echocardiogram, and expert consultation Quality Stroke Does the patient have a stroke diagnosis?: No VTE Prior VTE?: No VTE Risk Level:: Medical - moderate - high VTE Device Contraindication: Treatment Not Indicated VTE Drug Contraindication: N/A - Med Ordered
--- NOTE | 2023-12-04 16:47 | PHA.MEDREC ---
Pharmacy Consult ? Medication Reconciliation Pharmacy has completed the medication reconciliation. Spoke to patient and daughter to confirm med list. Patients daughter states her mother's Nortriptyline dose was changed from 10 mg to 25 mg at bedtime. patient says she takes Hydroxyzine 25 mg bid but claims states Hydroxyzine 25 mg tid. Serevent she takes daily, however claims states bid. Patoprazole 20 mg daily she only takes as needed, last claim date is .
[2023-12-04] MEDS: polyethylene glycoL 3350 17 GM POWD.PACK PO (17:10)
[2023-12-04 20:02] VITALS: BP 148/70; PULSE 74; RESP 18; TEMP 36.4; O2SAT 97
[2023-12-04 22:05] VITALS: BMI 27.2
[2023-12-04 22:13] VITALS: BP 135/63; PULSE 65; RESP 16; TEMP 36.1; O2SAT 96
[2023-12-04] MEDS: Gabapentin 100 MG CAPSULE PO (22:13)
[2023-12-04] MEDS: Atorvastatin Calcium 10 MG TABLET PO (22:13)
[2023-12-04] MEDS: hydrOXYzine HCL 25 MG TABLET PO (22:13)
[2023-12-04] MEDS: Sennosides 8.6 MG TABLET 17.2 MG PO (22:13)
[2023-12-04] MEDS: Nortriptyline HCl 25 MG CAPSULE PO (22:13)
[2023-12-04] MEDS: clonazePAM 1 MG TABLET PO (22:13)
[2023-12-04] MEDS: Apixaban 5 MG TABLET PO (22:13)
[2023-12-04] MEDS: 0.9 % Sodium Chloride Flush 3 ML SYRINGE IVFLUSH (22:14)
[2023-12-04] MEDS: Docusate Sodium 100 MG CAPSULE PO (22:14)
[2023-12-04 23:59] VITALS: BP 147/69; PULSE 69; RESP 18; TEMP 37.1; O2SAT 95
[2023-12-05 03:47] VITALS: BP 114/61; PULSE 59; RESP 16; TEMP 36.4; O2SAT 94
[2023-12-05 06:53] LABS: MANUAL DIFF FLAG NO
[2023-12-05 07:00] LABS: Basophils Absolute Auto 0.1 X10*3/uL (0.0-0.2); Basophils Percent Auto 0.7 % (0-2); Eosinophils Absolute Auto 0.1 X10*3/uL (0.0-0.4); Eosinophils Percent Auto 1.6 % (0-4); Hematocrit 41.3 % (37.0-47.0); Hemoglobin 14.2 g/dl (12.0-16.0); Imm Gran Abs Auto 0.03 X10*3/uL (0.00-0.03); Imm Gran Pct Auto 0.4 % (0.0-0.4); Lymphocytes Absolute Auto 1.8 X10*3/uL (1.2-4.9); Lymphocytes Percent Auto 26.8 % (20-40); Mean Corpuscular HGB Conc 34.4 g/dl (31.0-35.0); Mean Corpuscular Hemoglobin 31.8 pg (27.0-33.0); Mean Corpuscular Volume 92.4 fL (80.0-98.0); Mean Platelet Volume 10.1 fL (9.4-12.3); Monocytes Absolute Auto 0.5 X10*3/uL (0.1-1.2); Monocytes Percent Auto 7.6 % (2-11); Neutrophils Absolute Auto 4.3 x10*3/uL (2.0-8.3); Neutrophils Percent Auto 62.9 % (45-73); Platelet Count 164 X10*3/uL (160-400); Red Blood Count 4.47 X10*6/uL (4.20-5.50); Red Cell Distribution Width 12.8 % (11.0-16.0); White Blood Count 6.8 X10*3/uL (4.8-10.8)
--- NOTE | 2023-12-05 07:00 | CA_ITS ---
Transthoracic Echocardiogram Patient (Last, First, Middle): Yanelis Kang, Gender: Female Date of : 1935 Age: 88 Procedure Date: 12/05/2023 Procedure Type: Transthoracic Echocardiogram Location: [facility] [place] Height: 167.64 cm Weight: 76.2 kg BSA: 1.86 m2 Heart Rate: bpm BP: 114 / 61 mmHg Motorcycle Service Technician: Referring MD: Danyelle PATRICIO Symptoms: aflutter Study Quality: Adequate ECG Rhythm: Sinus with extra beats Conclusions: - Normal left ventricular cavity size. There is severely increased left ventricular wall thickness. The left ventricular systolic function is hyperdynamic. The visually estimated ejection fraction is >70%. - E/E prime ratio is between 8 and 15 consistent with indeterminate filling pressures. - Normal right ventricular cavity size and systolic function. There is mildly increased right ventricular wall thickness. - Prominent epicardial adipose tissue noted. There is no evidence of pericardial effusion. Findings Left Ventricle Normal left ventricular cavity size. There is severely increased left ventricular wall thickness. The left ventricular systolic function is hyperdynamic. The visually estimated ejection fraction is >70%. There is no evidence of regional wall motion abnormalities. Abnormal diastolic function is noted. Spectral Doppler is indicative of an impaired relaxation filling pattern. E/E prime ratio is between 8 and 15 consistent with indeterminate filling pressures. Right Ventricle Normal right ventricular cavity size and systolic function. There is mildly increased right ventricular wall thickness. Atria The left atrium is normal in size. Aortic Valve Normal aortic valve structure and function. There is no aortic valve stenosis. There is no aortic valve regurgitation. Mitral Valve The mitral valve appears normal. There is no mitral valve regurgitation. There is no mitral valve stenosis. Pulmonic Valve The pulmonic valve is likely normal. Tricuspid Valve Likely normal tricuspid valve structure and function. Normal right atrial pressure. There is no evidence of pulmonary hypertension. Great Vessels All visible segments of the aorta are normal in size. The pulmonary artery was not well visualized. Venous The inferior vena cava is normal in size and collapses greater than 50% with inspiration. Pericardium/Pleural Prominent epicardial adipose tissue noted. There is no evidence of pericardial effusion. Prior Study Comparison No prior study available for comparison. Measurements 2D Linear Measurements IVSd: 1.51 0.6-0.9/0.6-1.0 cm LVIDd: 2.95 3.9-5.3/4.2-5.9 cm LVIDd Index: 1.59 2.4-3.2/2.2-3.1 cm/m2 LVIDs: 2.21 2.0-3.6 cm LVPWd: 1.49 0.7-1.1 cm Ao Root: 3.30 2.1-3.5 cm LA Diam: 3.70 2.7-3.8/3.0-4.0 cm LAIDs Index: 1.99 1.5-2.3 cm/m2 LV Mass: 192.37 67-162/88-224 g LV Mass Index: 103.43 43-95/49-115 g/m2 LVOT Diam: 2.70 3.0+(-)1.3 cm Mitral Valve MV Pk E: 0.57 MV PK A: 1.32 MV Decel Time: 218.00 E/A: 0.40 E'Lateral: 5.22 E'Medial: 4.57 E/E' Med: 12.40 E/E' Lat: 10.80 PHT: 64.00 MVA PHT: 3.44 Decel [place]: 2.59 Aortic Valve AoV Pk Arvind: 1.47 AoV Mn Arvind: 1.00 AoV VTI: 0.27 AoV Pk Grad: 9.00 Aov Mn Grad: 5.00 KAREN Cont.VTI: 4.74 LVOT LVOT Pk Arvind: 1.19 LVOT Mn Arvind: 0.84 LVOT VTI: 0.23 LVOT Pk Grad: 6.00 LVOT Mn Grad: 3.00 LVOT Diam: 2.70 LVOT Area: 5.73 Diastolic Function MV Pk E: 0.57 MV Pk A: 1.32 E/A: 0.40 E'Medial: 4.57 E/E' Med: 12.40 E' Laterial: 5.22 E/E' Lat: 10.80 Right Ventricle TAPSE (mm): 17.00 TVS' Arvind: 10.00 Tricuspid Valve TR Pk Arvind: 2.23 TR Pk Grad: 20.00 RA Press: 3.00 RVSP: 23.00 Great Vessels Aorta Ao Root-2D: 3.30 2.0-3.7 cm Ao Asc: 3.40 2.1-3.4 cm Pulmonary Valve PV Pk Arvind: 1.31 Peak PV Grad: 7.00 Updated in Other Vendor System with Status of Final Davis Bonilla MD electronically signed on 12/05/2023 11:35:31 AM with status of Final
[2023-12-05 07:11] LABS: Anion Gap 12 (12-20); Blood Urea Nitrogen 13 mg/dL (9-16); Calcium 9.2 mg/dL (8.4-10.2); Carbon Dioxide 24 mmol/L (22-29); Chloride 101 mmol/L (96-108); Creatinine Clr Calc Pharmacy 62.4; Estimated Glomerular Filt Rate > 60; Glucose Random 83 mg/dL (60-115); Potassium 3.9 mmol/L (3.3-5.1); Sodium 133 mmol/L (135-145)
[2023-12-05 07:38] VITALS: BP 157/73; PULSE 71; RESP 20; TEMP 36.7; O2SAT 96
--- NOTE | 2023-12-05 09:20 | HO.PM.IMPN ---
Subjective Subjective Date of Service: 12/05/23 Interval History: no complaints Physical Exam Vital Signs: Vital Signs: Last Vital Signs Temp 98.0 F 12/05/23 07:38 Pulse 71 12/05/23 07:38 Resp 20 12/05/23 07:38 BP 157/73 H 12/05/23 07:38 Pulse Ox 96 12/05/23 07:38 O2 Del Method Room Air 12/05/23 07:38 BMI result Body Mass Index 27.2 General: AO X 3, no acute distress Resp: CTA bilateral, no accessory muscles used CVS: S1,S2,RRR GI: soft, non tender, non distended Neuro: motor grossly intact, alert Psych: appropriate affect, appropriate insight Objective Data Active Medications Acetaminophen (Acetaminophen 325 Mg Tablet) 650 mg PO Q6H PRN PRN Reason: Pain, Mild (Pain Scale 1-3), fever or headache Albuterol Sulfate (Albuterol Sulfate 90 Mcg 8 Gm Inhaler) 2 puff INHALE DAILY PRN PRN Reason: Shortness Of Breath Or Wheezing Amlodipine Besylate (Amlodipine Besylate 5 Mg Tablet) 5 mg PO DAILY [facility]; Protocol Apixaban (Apixaban 5 Mg Tablet) 5 mg PO BID [facility] Last Admin: 12/04/23 22:13 Dose: 5 mg Documented By: LIZA Artificial Tears (Artificial Tears 15 Ml Drops) 1 drop EYE-BOTH QID PRN PRN Reason: Dry Eye(S) Atorvastatin Calcium (Atorvastatin Calcium 10 Mg Tablet) 10 mg PO BEDTIME [facility] Last Admin: 12/04/23 22:13 Dose: 10 mg Documented By: LIZA Calcium Carbonate (Calcium Carbonate 750 Mg Tab.Chew) 750 mg PO Q4H PRN PRN Reason: Heartburn Clonazepam (Clonazepam 1 Mg Tablet) 1 mg PO BID [facility] Last Admin: 12/04/23 22:13 Dose: 1 mg Documented By: LIZA Diltiazem HCl (Diltiazem Hcl Cd 120 Mg Cap.Er.Deg) 120 mg PO DAILY [facility]; Protocol Docusate Sodium (Docusate Sodium 100 Mg Capsule) 100 mg PO BID [facility] Last Admin: 12/04/23 22:14 Dose: 100 mg Documented By: LIZA Furosemide (Furosemide 20 Mg Tablet) 20 mg PO DAILY [facility]; Protocol Gabapentin (Gabapentin 100 Mg Capsule) 100 mg PO TID [facility] Last Admin: 12/04/23 22:13 Dose: 100 mg Documented By: LIZA Hydroxyzine HCl (Hydroxyzine Hcl 25 Mg Tablet) 25 mg PO BID [facility] Last Admin: 12/04/23 22:13 Dose: 25 mg Documented By: LIZA Lidocaine (Lidocaine 4 % Patch Adh..Patch) 1 patch TRANSDERMA DAILY [facility]; Protocol Lisinopril (Lisinopril 10 Mg Tablet) 30 mg PO DAILY [facility]; Protocol Magnesium Hydroxide (Milk Of Magnesia 30 Ml Oral.Susp) 30 ml PO DAILY PRN PRN Reason: Constipation Melatonin (Melatonin 3 Mg Tablet) 6 mg PO BEDTIME PRN PRN Reason: Insomnia Mirtazapine (Mirtazapine 7.5 Mg Tablet) 7.5 mg PO BEDTIME PRN PRN Reason: Insomnia Nortriptyline HCl (Nortriptyline Hcl 25 Mg Capsule) 25 mg PO BEDTIME [facility] Last Admin: 12/04/23 22:13 Dose: 25 mg Documented By: LIZA Omeprazole (Omeprazole 20 Mg Capsule.) 20 mg PO DAILY@0630 PRN PRN Reason: Acid Reflux Polyethylene Glycol (Polyethylene Glycol 3350 17 Gm Powd.Pack) 17 gm PO DAILY [facility] Last Admin: 12/04/23 17:10 Dose: 17 gm Documented By: BETTY Psyllium Hydrophilic Mucilloid (Psyllium Seed 3.7 Gm Packet) 3.7 gm PO BID PRN PRN Reason: Constipation Salmeterol Xinafoate (Salmeterol Xinafoate 50 Mcg Blst.W.Dev) 1 puff INHALE DAILY [facility] Senna (Sennosides 8.6 Mg Tablet) 17.2 mg PO BEDTIME [facility] Last Admin: 12/04/23 22:13 Dose: 17.2 mg Documented By: LIZA Sodium Chloride (0.9 % Sodium Chloride Flush 3 Ml Syringe) 3 ml IVFLUSH QSHIFT [facility] Last Admin: 12/04/23 22:14 Dose: 3 ml Documented By: LIZA Labs 12/05/23 06:41 12/05/23 06:41 Labs: Laboratory Results - last 24 hr 12/04/23 12/04/23 12/04/23 12:34 12:46 14:39 MCV 92.5 MCH 32.5 MCHC 35.2 H RDW 12.9 Plt Count 213 MPV 10.0 Immature Gran % (Auto) 0.3 Neut % (Auto) 72.0 Lymph % (Auto) 20.5 [place] % (Auto) 5.7 Eos % (Auto) 0.6 Baso % (Auto) 0.9 Lymph # (Auto) 1.8 [place] # (Auto) 0.5 Eos # (Auto) 0.1 Baso # (Auto) 0.1 Abs Immat Gran (auto) 0.03 Absolute Neuts (auto) 6.4 Absolute Nucleated RBC 0.000 Nucleated RBC % (auto) 0.0 Anion Gap 14 Estim Creat Clear Calc 59.5 Estimated GFR > 60 Random Glucose 104 Lactic Acid 1.6 Calcium 9.6 Magnesium 2.0 Total Bilirubin 1.0 Direct Bilirubin 0.3 AST 25 ALT 15 Alkaline Phosphatase 80 Troponin I High Sens 20.6 H 25.4 H B-Natriuretic Peptide 146 H Total Protein 8.2 H Albumin 4.3 Lipase 34 Influenza Type A (PCR) NEGATIVE Influenza Type B (PCR) NEGATIVE RSV RNA Qual (PCR) NEGATIVE SARS-CoV-2 RNA (RT-PCR) NEGATIVE 12/05/23 06:41 MCV 92.4 MCH 31.8 MCHC 34.4 RDW 12.8 Plt Count 164 MPV 10.1 Immature Gran % (Auto) 0.4 Neut % (Auto) 62.9 Lymph % (Auto) 26.8 [place] % (Auto) 7.6 Eos % (Auto) 1.6 Baso % (Auto) 0.7 Lymph # (Auto) 1.8 [place] # (Auto) 0.5 Eos # (Auto) 0.1 Baso # (Auto) 0.1 Abs Immat Gran (auto) 0.03 Absolute Neuts (auto) 4.3 Absolute Nucleated RBC 0.000 Nucleated RBC % (auto) 0.0 Anion Gap 12 Estim Creat Clear Calc 62.4 Estimated GFR > 60 Random Glucose 83 Lactic Acid Calcium 9.2 Magnesium Total Bilirubin Direct Bilirubin AST ALT Alkaline Phosphatase Troponin I High Sens B-Natriuretic Peptide Total Protein Albumin Lipase Influenza Type A (PCR) Influenza Type B (PCR) RSV RNA Qual (PCR) SARS-CoV-2 RNA (RT-PCR) Assessment and Plan (1) New onset atrial flutter: Status: Acute Plan 88 year old female with history of gerd, unspecified HF, htn, hld, copd admitted for new onset atrial flutter with rvr New onset atrial flutter with rvr- now in sinus with pacs eliquis 5mg bid- no contraindication to ac initiate diltiazem 120 cd am cardiac diet echo cardiology consult Acute hypotension r/t above, resolved on admission following ivf IBS - mixed -continue senna, Citrucel. MiraLax. Unspecified hf -no echo available, reported by LTC -continue lasix po HTN -continue amlodipine, lasix, lisinopril COPD -no acute exacerbation -continue maintenance inhalers, albuterol p.r.n. GERD -PPI DVT prophylaxis-Eliquis -DNR/DNI reason for continued hospitalization:echo and cardio eval pending Quality Stroke Does the patient have a stroke diagnosis?: No VTE Prior VTE?: No VTE Risk Level:: Medical - moderate - high VTE Device Contraindication: Treatment Not Indicated VTE Drug Contraindication: N/A - Med Ordered
[2023-12-05] MEDS: Lidocaine 4 % Patch ADH..PATCH 1 PATCH TRANSDERMA (09:23)
[2023-12-05] MEDS: polyethylene glycoL 3350 17 GM POWD.PACK PO (09:25)
[2023-12-05] MEDS: dilTIAZem HCL CD 120 MG CAP.ER.DEG PO (09:26)
[2023-12-05] MEDS: Gabapentin 100 MG CAPSULE PO ×3 (09:26→20:33)
[2023-12-05] MEDS: Furosemide 20 MG TABLET PO (09:26)
[2023-12-05] MEDS: Docusate Sodium 100 MG CAPSULE PO ×2 (09:26→20:33)
[2023-12-05] MEDS: lisinopriL 10 MG TABLET 30 MG PO (09:26)
[2023-12-05] MEDS: amLODIPine Besylate 5 MG TABLET PO (09:26)
[2023-12-05] MEDS: hydrOXYzine HCL 25 MG TABLET PO (09:26)
[2023-12-05] MEDS: clonazePAM 1 MG TABLET PO ×2 (09:27→20:33)
[2023-12-05] MEDS: 0.9 % Sodium Chloride Flush 3 ML SYRINGE IVFLUSH ×2 (09:27→15:11)
[2023-12-05] MEDS: Apixaban 5 MG TABLET PO ×2 (09:27→20:33)
[2023-12-05 11:26] VITALS: BP 101/58; PULSE 72; RESP 20; TEMP 36.2; O2SAT 97
--- NOTE | 2023-12-05 11:32 | MHC.CM.PN ---
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 DCP is to return to [place] via BLS. CM to follow for DC needs.
--- NOTE | 2023-12-05 11:38 | P.CONCA_ITS ---
History of Present Illness History of Present Illness Date of Service: 12/05/23 Requesting physician: Basilio Triplett Chief complaint: new onset a flutter Narrative: 88-year-old female with background history of irritable bowel syndrome with constipation and gastroesophageal reflux disease who presented from GI clinic with feeling unwell and tachycardia. She was noticed to be in atrial flutter. She was hypotensive and was not feeling herself. She has been in a nursing facility for 3 years. She is saying off and on she gets this feeling where she gets somewhat disoriented. During the atrial flutter episode she clearly had confusion, hypotension and was quite pale looking. She is feeling better at this point. She is back in sinus rhythm. She has left bundle-branch block on her EKG. FORMERLY [facility] Past Medical History Medical History Heart failure COPD (chronic obstructive pulmonary disease) HLD (hyperlipidemia) HTN (hypertension) GERD (gastroesophageal reflux disease) Surgical History Surgical History History of surgery on wrist Hx of bilateral hip replacements Hx of total knee replacement Social History Social History Housing: [facility]iary Alcohol intake: never Patient Tobacco Use Status: Former Tobacco user Tobacco use type: Cigarette Advance Directives Date on File: 12/04/23 service: No Meds Allergies Allergy/AdvReac Type Severity Reaction Status Date / Time oxycodone Allergy Intermediate shaking Verified 12/04/23 12:11 Penicillins Allergy Mild Unknown Verified 12/04/23 12:11 Sulfa (Sulfonamide Allergy Mild Unknown Verified 12/04/23 12:11 Antibiotics) Active Medications: Current Medications Acetaminophen (Acetaminophen 325 Mg Tablet) 650 mg PO Q6H PRN PRN Reason: Pain, Mild (Pain Scale 1-3), fever or headache Albuterol Sulfate (Albuterol Sulfate 90 Mcg 8 Gm Inhaler) 2 puff INHALE DAILY PRN PRN Reason: Shortness Of Breath Or Wheezing Amiodarone HCl (Amiodarone Hcl 200 Mg Tablet) 200 mg PO BID [facility] Amlodipine Besylate (Amlodipine Besylate 5 Mg Tablet) 5 mg PO DAILY [facility]; Protocol Last Admin: 12/05/23 09:26 Dose: 5 mg Apixaban (Apixaban 5 Mg Tablet) 5 mg PO BID [facility] Last Admin: 12/05/23 09:27 Dose: 5 mg Artificial Tears (Artificial Tears 15 Ml Drops) 1 drop EYE-BOTH QID PRN PRN Reason: Dry Eye(S) Atorvastatin Calcium (Atorvastatin Calcium 10 Mg Tablet) 10 mg PO BEDTIME [facility] Last Admin: 12/04/23 22:13 Dose: 10 mg Calcium Carbonate (Calcium Carbonate 750 Mg Tab.Chew) 750 mg PO Q4H PRN PRN Reason: Heartburn Clonazepam (Clonazepam 1 Mg Tablet) 1 mg PO BID [facility] Last Admin: 12/05/23 09:27 Dose: 1 mg Docusate Sodium (Docusate Sodium 100 Mg Capsule) 100 mg PO BID [facility] Last Admin: 12/05/23 09:26 Dose: 100 mg Furosemide (Furosemide 20 Mg Tablet) 20 mg PO DAILY [facility]; Protocol Last Admin: 12/05/23 09:26 Dose: 20 mg Gabapentin (Gabapentin 100 Mg Capsule) 100 mg PO TID [facility] Last Admin: 12/05/23 09:26 Dose: 100 mg Lidocaine (Lidocaine 4 % Patch Adh..Patch) 1 patch TRANSDERMA DAILY [facility]; Protocol Last Admin: 12/05/23 09:23 Dose: 1 patch Lisinopril (Lisinopril 10 Mg Tablet) 30 mg PO DAILY [facility]; Protocol Last Admin: 12/05/23 09:26 Dose: 30 mg Magnesium Hydroxide (Milk Of Magnesia 30 Ml Oral.Susp) 30 ml PO DAILY PRN PRN Reason: Constipation Melatonin (Melatonin 3 Mg Tablet) 6 mg PO BEDTIME PRN PRN Reason: Insomnia Mirtazapine (Mirtazapine 7.5 Mg Tablet) 7.5 mg PO BEDTIME PRN PRN Reason: Insomnia Nortriptyline HCl (Nortriptyline Hcl 25 Mg Capsule) 25 mg PO BEDTIME [facility] Last Admin: 12/04/23 22:13 Dose: 25 mg Omeprazole (Omeprazole 20 Mg Capsule.Dr) 20 mg PO DAILY@0630 PRN PRN Reason: Acid Reflux Polyethylene Glycol (Polyethylene Glycol 3350 17 Gm Powd.Pack) 17 gm PO DAILY [facility] Last Admin: 12/05/23 09:25 Dose: 17 gm Psyllium Hydrophilic Mucilloid (Psyllium Seed 3.7 Gm Packet) 3.7 gm PO BID PRN PRN Reason: Constipation Senna (Sennosides 8.6 Mg Tablet) 17.2 mg PO BEDTIME [facility] Last Admin: 12/04/23 22:13 Dose: 17.2 mg Sodium Chloride (0.9 % Sodium Chloride Flush 3 Ml Syringe) 3 ml IVFLUSH QSHIFT [facility] Last Admin: 12/05/23 09:27 Dose: 3 ml Home Medications ?Medication ?Instructions ?Recorded ?Confirmed ?Last Taken ?Type acetaminophen 500 mg tablet 1,000 mg PO Q6H PRN Fever Or Pain 06/27/23 12/04/23 Unknown History alendronate 70 mg tablet 70 mg PO SA 06/27/23 12/04/23 12/04/23 History aluminum-mag hydroxide-simethicone 10 ml PO QID PRN Constipation 06/27/23 12/04/23 Unknown History 200 mg-200 mg-20 mg/5 mL oral susp amlodipine 5 mg tablet 5 mg PO DAILY 06/27/23 12/04/23 12/04/23 History clonazepam 1 mg tablet 1 mg PO BID 06/27/23 12/04/23 12/04/23 History furosemide 20 mg tablet 20 mg PO DAILY 06/27/23 12/04/23 12/04/23 History gabapentin 100 mg capsule 100 mg PO TID 06/27/23 12/04/23 12/04/23 History lisinopril 30 mg tablet 30 mg PO DAILY 06/27/23 12/04/23 12/04/23 History magnesium hydroxide 400 mg/5 mL 5 ml PO BEDTIME PRN Constipation 06/27/23 12/04/23 Unknown History oral suspension (Milk of Magnesia) mirtazapine 7.5 mg tablet 7.5 mg PO BEDTIME PRN Insomnia 06/27/23 12/04/23 12/04/23 History pantoprazole 20 mg tablet,delayed 20 mg PO DAILY@0630 PRN Acid Reflux 06/27/23 12/04/23 12/04/23 History release salmeterol 50 mcg/dose blister 1 inh inhalation DAILY 06/27/23 12/04/23 12/04/23 History powder for inhalation (Serevent Diskus) simvastatin 20 mg tablet 20 mg PO BEDTIME 06/27/23 12/04/23 12/04/23 History hydroxyzine HCl 25 mg tablet 25 mg PO BID 08/25/23 12/04/23 12/04/23 History nortriptyline 25 mg capsule 25 mg PO BEDTIME 08/25/23 12/04/23 12/04/23 History peg [id number] 1 1 drp ophthalmic (eye) QID PRN Dry 08/25/23 12/04/23 12/04/23 History %-0.2 %-0.2 % eye drops Eye(S) (Artificial Tears ([id number])) albuterol sulfate 90 mcg/actuation 1 - 2 puff inhalation DAILY PRN 12/04/23 12/04/23 Unknown History aerosol inhaler Shortness Of Breath Or Wheezing lidocaine 4 % topical patch 1 patch topical DAILY 12/04/23 12/04/23 12/04/23 History methylcellulose (laxative) 500 mg 500 mg PO BID PRN Constipation 12/04/23 12/04/23 Unknown History tablet (Citrucel) Physical Exam 2 Vital Signs: Vital Signs: Last Vital Signs Temp 97.1 F 12/05/23 11:26 Pulse 72 12/05/23 11:26 Resp 20 12/05/23 11:26 BP 101/58 L 12/05/23 11:26 Pulse Ox 97 12/05/23 11:26 O2 Del Method Room Air 12/05/23 11:26 BMI result Body Mass Index 27.2 GENERAL APPEARANCE: in no acute distress, pleasant. NECK: no carotid bruit, no jugular venous distention. SKIN: no suspicious lesions, warm and dry. HEART: no murmurs, regular rate and rhythm. LUNGS: clear to auscultation bilaterally. ABDOMEN: soft, nontender. EXTREMITIES: no edema. PERIPHERAL PULSES: equal. NEUROLOGIC: No gross deficits, AAO X 3 Objective Labs and Meds 12/05/23 06:41 12/05/23 06:41 Lab results: Laboratory Results - last 24 hr 12/04/23 12/04/23 12/04/23 12:34 12:46 14:39 WBC 8.9 RBC 4.55 Hgb 14.8 Hct 42.1 MCV 92.5 MCH 32.5 MCHC 35.2 H RDW 12.9 Plt Count 213 MPV 10.0 Immature Gran % (Auto) 0.3 Neut % (Auto) 72.0 Lymph % (Auto) 20.5 [place] % (Auto) 5.7 Eos % (Auto) 0.6 Baso % (Auto) 0.9 Lymph # (Auto) 1.8 [place] # (Auto) 0.5 Eos # (Auto) 0.1 Baso # (Auto) 0.1 Abs Immat Gran (auto) 0.03 Absolute Neuts (auto) 6.4 Absolute Nucleated RBC 0.000 Nucleated RBC % (auto) 0.0 Sodium 131 L Potassium 4.7 Chloride 96 Carbon Dioxide 26 Anion Gap 14 BUN 9 Creatinine 0.71 Estim Creat Clear Calc 59.5 Estimated GFR > 60 Random Glucose 104 Lactic Acid 1.6 Calcium 9.6 Magnesium 2.0 Total Bilirubin 1.0 Direct Bilirubin 0.3 AST 25 ALT 15 Alkaline Phosphatase 80 Troponin I High Sens 20.6 H 25.4 H B-Natriuretic Peptide 146 H Total Protein 8.2 H Albumin 4.3 Lipase 34 Influenza Type A (PCR) NEGATIVE Influenza Type B (PCR) NEGATIVE RSV RNA Qual (PCR) NEGATIVE SARS-CoV-2 RNA (RT-PCR) NEGATIVE 12/05/23 06:41 WBC 6.8 RBC 4.47 Hgb 14.2 Hct 41.3 MCV 92.4 MCH 31.8 MCHC 34.4 RDW 12.8 Plt Count 164 MPV 10.1 Immature Gran % (Auto) 0.4 Neut % (Auto) 62.9 Lymph % (Auto) 26.8 [place] % (Auto) 7.6 Eos % (Auto) 1.6 Baso % (Auto) 0.7 Lymph # (Auto) 1.8 [place] # (Auto) 0.5 Eos # (Auto) 0.1 Baso # (Auto) 0.1 Abs Immat Gran (auto) 0.03 Absolute Neuts (auto) 4.3 Absolute Nucleated RBC 0.000 Nucleated RBC % (auto) 0.0 Sodium 133 L Potassium 3.9 Chloride 101 Carbon Dioxide 24 Anion Gap 12 BUN 13 Creatinine 0.65 Estim Creat Clear Calc 62.4 Estimated GFR > 60 Random Glucose 83 Lactic Acid Calcium 9.2 Magnesium Total Bilirubin Direct Bilirubin AST ALT Alkaline Phosphatase Troponin I High Sens B-Natriuretic Peptide Total Protein Albumin Lipase Influenza Type A (PCR) Influenza Type B (PCR) RSV RNA Qual (PCR) SARS-CoV-2 RNA (RT-PCR) Imaging Radiologist's impression: Impressions Abdomen/Pelvis CT 12/04/23 13:37 IMPRESSION: 1. A cause for the patient's sinus tachycardia has not been found. 2. Incidental note made of benign adrenal adenomas, cholecystectomy, degenerative changes in the spine with kyphoplasty changes and bilateral total hip prostheses. Fleischner guidelines were followed. Chest CTA 12/04/23 13:37 IMPRESSION: 1. No evidence of pulmonary emboli. 2. Moderate emphysema with saber-sheath trachea and mild diffuse bronchial thickening. 3. 4 mm right middle lobe nodule. 4. Bilateral benign adrenal adenomas. VTE: negative. Assessment and Plan (1) New onset atrial flutter: Status: Acute Plan Pleasant 88-year-old female with new onset atrial flutter with hypotension in the setting of tachycardia. Her echocardiography showing severe left ventricular hypertrophy and she has an impaired relaxation pattern on mitral inflow. I think this is the reason she had hypotension with tachycardia and probably will not tolerate atrial flutter in the future 2. Stop the diltiazem. Add amiodarone 200 mg twice a day starting tonight. Monitor heart rate and blood pressure closely. If stable till tomorrow then can be discharged home on amiodarone 200 mg twice a day for 10 days and then 200 mg daily afterwards. She is on Eliquis for anticoagulation which should be continued. Clinically not in heart failure. We will arrange Holter monitor for her as outpatient. Thank you for allowing me to participate in the care of your patient. Please feel free to contact me if you have any questions. Procedures Date of Service Date of Service: 12/05/23
--- NOTE | 2023-12-05 12:19 | P.CDIM_ITS ---
PROVIDER RESPONSE TEXT: To clarify, the appropriate diagnosis supported by the clinical indicators: Hyponatremia: mild QUERY TEXT: PHYSICIAN'S DOCUMENTATION REQUEST Date of Query: 12/05/2023 12:12 PM EDT Patient Name: Yanelis Kang Admit Date: 12/04/2023 Dear Basilio Triplett, A review of the medical record indicates additional documentation may be needed. Please review below and update the documentation accordingly. Clinical Indicators: LABS: sodium 131 L 133 L Fluids Based on the above, is there a diagnosis that correlates with these lab findings: Hyponatremia resolved, possible, suspected Labs indicate a diagnosis of (please specify) Other (explain) Clinically unable to determine (explain) Thank you, Karli Monahan, CCS, CDIS Use of terms such as suspected, likely, concern for, or probable (associated with a specific diagnosi s that is being evaluated, monitored, or treated as if it exists) are acceptable and can be coded in the inpatient se tting, when documented at the time of discharge. Please use your independent medical judgment in providing your response. THIS QUERY IS PART OF THE PERMANENT MEDICAL RECORD
[2023-12-05 15:52] VITALS: BP 110/57; PULSE 80; RESP 16; TEMP 36; O2SAT 94
[2023-12-05 20:00] VITALS: BP 121/58; PULSE 64; RESP 20; TEMP 36.2; O2SAT 95
[2023-12-05] MEDS: Amiodarone HCL 200 MG TABLET PO (20:33)
[2023-12-05] MEDS: Nortriptyline HCl 25 MG CAPSULE PO (20:33)
[2023-12-05] MEDS: Sennosides 8.6 MG TABLET 17.2 MG PO (20:34)
[2023-12-05] MEDS: Atorvastatin Calcium 10 MG TABLET PO (20:38)
[2023-12-06] VITALS: BP 106/55; PULSE 79; RESP 20; TEMP 36.1; O2SAT 95
[2023-12-06 03:48] VITALS: BP 112/55; PULSE 56; RESP 20; TEMP 36.4; O2SAT 92
[2023-12-06 07:42] VITALS: BP 117/59; PULSE 59; RESP 20; TEMP 36.3; O2SAT 95
[2023-12-06 09:31] VITALS: BP 118/58
[2023-12-06] MEDS: amLODIPine Besylate 5 MG TABLET PO (09:31)
[2023-12-06] MEDS: Amiodarone HCL 200 MG TABLET PO (09:31)
[2023-12-06] MEDS: Apixaban 5 MG TABLET PO (09:31)
[2023-12-06] MEDS: lisinopriL 10 MG TABLET 30 MG PO (09:31)
[2023-12-06 09:32] VITALS: BP 118/58
[2023-12-06] MEDS: Furosemide 20 MG TABLET PO (09:32)
[2023-12-06] MEDS: clonazePAM 1 MG TABLET PO (09:32)
[2023-12-06] MEDS: Lidocaine 4 % Patch ADH..PATCH 1 PATCH TRANSDERMA (09:32)
[2023-12-06] MEDS: Gabapentin 100 MG CAPSULE PO (09:32)
[2023-12-06] MEDS: Docusate Sodium 100 MG CAPSULE PO (09:32)
[2023-12-06] MEDS: 0.9 % Sodium Chloride Flush 3 ML SYRINGE IVFLUSH (09:33)
--- NOTE | 2023-12-06 09:42 | PM.DS ---
DS: Providers Provider Date of Service: 12/06/23 Date of admission: 12/04/23 16:30 Primary care physician: Angelica Estrada MD Consults: 12/05/23 10:23 Consult to Cardiology Routine Consulting Provider[place] [facility] [place] Reason for consultation: nika Has provider been notified: Yes DS: Diagnosis Discharge Diagnosis (1) New onset atrial flutter: Status: Acute DS: Summary Hospital Course Hospital Course: from initial hpi: 88 year old female with history of gerd, unspecified HF, htn, hld, copd presented to the ED from GI office where she was being seen for chronic alternating diarrhea/constipation. While in GI, pt was noted to be pale and hypotensive to 86/49 with HR 130s-140s. The patient reports she has been feeling generally unwell for several months, depressed, not coming out of her room [facility] at the [facility]. She had been having 4-5 episodes of diarrhea daily but now experiencing constipation with no bm in 4 days despite senna and suppository last night. No fevers, chills, recent illness, abd pain, n/v/ melena, hematazchezia, sob, lightheadedness, syncope, palpitations, or chest pain. Has been given 1L IVF with improvement in bp to 135/84 on admissiona nd HR 86. No leukocytosis or anemia. Renal fx and lytes normla except Na 131. Initial trop 20.6, repeat 25.4. BNP 146. Negative for covid, flu, rsv. CT abdomen/pelvis negative for any acute abnormality. CTA chest negative for PE which shows moderate emphysema with saber sheath trachea and mild diffuse bronchial thickening and 4 mm right middle lobe nodule with bilateral benign adrenal adenomas. In the ED, given 324 mg aspirin and 1 L IV NS. hospital course: Patient was admitted for new onset atrial flutter with rapid ventricular response. She converted to sinus rhythm with PACs. She was started on apixaban. She was seen by Cardiology who recommended amiodarone 200 mg b.i.d. for 10 days and then decrease to 200 mg daily. For acute hypotension due to atrial flutter this resolved on admission after IV fluids. For IBS mixed type she was continued on senna, Citrucel, MiraLax. For chronic diastolic CHF she was restarted on Lasix p.o. for hypertension she was restarted on amlodipine and lisinopril after resolution of hypotension. Her COPD remained stable on maintenance inhalers. For GERD she continued on PPI. Patient is feeling better will be discharged home. Time Attestation Discharge Coordination Time (in mins): 35 Quality: Safe Use of Opioids Does Pt have an Active Cancer Diagnosis on the Problem List?: No Quality: Stroke Does the patient have a stroke diagnosis?: No Physical Exam Vital Signs: Vital Signs: Last Vital Signs Temp 97.3 F 12/06/23 07:42 Pulse 59 12/06/23 07:42 Resp 20 12/06/23 07:42 BP 118/58 L 12/06/23 09:32 Pulse Ox 95 12/06/23 07:42 O2 Del Method Room Air 12/06/23 07:42 BMI result Body Mass Index 27.2 GENERAL APPEARANCE: in no acute distress, pleasant. NECK: no carotid bruit, no jugular venous distention. SKIN: no suspicious lesions, warm and dry. HEART: no murmurs, regular rate and rhythm. LUNGS: clear to auscultation bilaterally. ABDOMEN: soft, nontender. EXTREMITIES: no edema. PERIPHERAL PULSES: equal. NEUROLOGIC: No gross deficits, AAO X 3 DS: Data Data Completed and Pending Labs on day of discharge: Preliminary micro results at discharge 12/04/23 12:46 Blood Culture - Preliminary Blood - Venous No growth after 24 hours. 12/04/23 12:34 Blood Culture - Preliminary Blood - Venous No growth after 24 hours. Discharge Plan Discharge Anticipated Discharge Date/Time: 12/06/23 09:39 Patient Disposition: Home, Self-Care Discharge Diagnosis: aflutter Referrals: Angelica Estrada MD [Primary Care Provider] - 1 Week Discharge Medications: New Eliquis 5 mg Tablet 5 mg PO BID Qty: 180 0RF amiodarone 200 mg Tablet 200 mg PO BID Qty: 99 0RF Continued Citrucel 500 mg tablet 500 mg PO BID PRN (Reason: Constipation) lidocaine 4 % Adhesive Patch,Medicated 1 patch TOPICAL DAILY Rx Instructions: 12 hours on and 12 hours off Artificial Tears([id number]) 1-0.2-0.2 % drops 1 drp ophthalmic (eye) QID PRN (Reason: Dry Eye(S)) Rx Instructions: Both eyes hydroxyzine HCl 25 mg tablet 25 mg PO BID nortriptyline 25 mg capsule 25 mg PO BEDTIME lisinopril 30 mg tablet 30 mg PO DAILY gabapentin 100 mg capsule 100 mg PO TID amlodipine 5 mg tablet 5 mg PO DAILY mirtazapine 7.5 mg tablet 7.5 mg PO BEDTIME PRN (Reason: Insomnia) pantoprazole 20 mg tablet,delayed release (DR/EC) 20 mg PO DAILY@0630 PRN (Reason: Acid Reflux) furosemide 20 mg tablet 20 mg PO DAILY alendronate 70 mg tablet 70 mg PO SA acetaminophen 500 mg tablet 1,000 mg PO Q6H PRN (Reason: Fever Or Pain) magnesium hydroxide [Milk of Magnesia] 400 mg/5 mL suspension 5 ml PO BEDTIME PRN (Reason: Constipation) alum-mag hydroxide-simeth 200-200-20 mg/5 mL suspension 10 ml PO QID PRN (Reason: Constipation) Rx Instructions: administer between meals and at bedtime simvastatin 20 mg tablet 20 mg PO BEDTIME Serevent Diskus 50 mcg/dose blister with device 1 inh inhalation DAILY clonazepam 1 mg tablet 1 mg PO BID albuterol sulfate 90 mcg/actuation HFA aerosol inhaler 1 - 2 puff inhalation DAILY PRN (Reason: Shortness Of Breath Or Wheezing) sennosides [Natural Senna Laxative] 8.6 mg tablet 17.2 mg PO BEDTIME Qty: 180 3RF docusate sodium 100 mg capsule 100 mg PO BID Qty: 180 3RF Discharge Orders: Discharge Order (Routine); Ordered 12/06/23 Ordered By: Basilio Triplett Diet: Advance to usual diet Activity on Discharge: As tolerated Stand Alone Forms: Patient Portal Discharge page Print Language: Japanese Care Plan Goals: Avoid a flutter Health Concerns: Atrial flutter Plan of Treatment: Continue amiodarone loading of 200 mg b.i.d. for 9 more days then decrease to 200 mg daily. Starting on Eliquis for stroke prevention Assessment: See above
--- NOTE | 2023-12-06 10:21 | MHC.CM.PN ---
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
--- NOTE | 2023-12-06 11:28 | PM.PNCARD ---
Subjective Subjective Date of Service: 12/06/23 Interval history: Seen examined at bedside. Continues to be in sinus rhythm. Clinically stable. Physical Exam Vital Signs: Last Vital Signs Temp 97.3 F 12/06/23 07:42 Pulse 59 12/06/23 07:42 Resp 20 12/06/23 07:42 BP 118/58 L 12/06/23 09:32 Pulse Ox 95 12/06/23 07:42 O2 Del Method Room Air 12/06/23 07:42 BMI result Body Mass Index 27.2 GENERAL APPEARANCE: in no acute distress, pleasant. NECK: no carotid bruit, no jugular venous distention. SKIN: no suspicious lesions, warm and dry. HEART: no murmurs, regular rate and rhythm. LUNGS: clear to auscultation bilaterally. ABDOMEN: soft, nontender. EXTREMITIES: no edema. PERIPHERAL PULSES: equal. NEUROLOGIC: No gross deficits, AAO X 3 Objective Labs and Meds 12/05/23 06:41 12/05/23 06:41 Progress Note: A&P Assessment and plan (1) New onset atrial flutter: Status: Acute Plan 88-year-old female with paroxysmal atrial flutter. In setting of tachycardia she had disorientation and hypotension. She has not tolerated atrial flutter well due to left ventricular hypertrophy as well as grade 1 diastolic dysfunction. I have started her on amiodarone 200 mg twice a day load for the next 14 days followed by 200 mg daily. Stop the hydroxyzine because there is interaction with amiodarone. She is on apixaban 5 mg twice a day. We will arrange Holter monitor for her. Thank you for allowing me to participate in the care of your patient. Please feel free to contact me if you have any questions. Time Spent With Patient Time: Total time managing care of this patient today ____ minutes. Progress Note: Quality Stroke Does the patient have a stroke diagnosis?: No Procedures Date of Service Date of Service: 12/06/23
[2023-12-06 12:00] VITALS: BP 122/58; PULSE 62; RESP 20; TEMP 36.2; O2SAT 98
== END 2023-12-06 13:10 | disposition skilled nursing facility (03) | DRG 309 ==
LOC: HO.ED 15:07 → HO.EDOVER 16:40 → HO.IMC 19:29
PROVIDERS: Admitting Provider Physician Assistant; Emergency Provider Emergency Medicine; PCP Internal Medicine; Visit Provider Internal Medicine
DX: I48.92 Unspecified atrial flutter (principal); E87.1 Hypo-osmolality and hyponatremia; I50.32 Chronic diastolic (congestive) heart failure; Z66 Do not resuscitate; I11.0 Hypertensive heart disease with heart failure; I95.9 Hypotension, unspecified; K58.2 Mixed irritable bowel syndrome; J44.9 Chronic obstructive pulmonary disease, unspecified; K21.9 Gastro-esophageal reflux disease without esophagitis; Z87.891 Personal history of nicotine dependence; Z79.899 Other long term (current) drug therapy
CPT/HCPCS: 0241U; 36415; 71275; 74177; 80048; 80076; 83605; 83690; 83735; 83880; 84484; 85025; 87040; 93005; 93306; 99212; 99285; Q9957

== ENCOUNTER → 2023-12-04 11:53 | Outpatient (BNV) | payer MEDICARE, MEDICAID, SELFPAY | PROVIDERS: Admitting Provider Physician Assistant; Emergency Provider Emergency Medicine; PCP Internal Medicine; Visit Provider Internal Medicine Cardiovascular Disease | DX: R94.31 Abnormal electrocardiogram [ECG] [EKG] (principal) | CPT/HCPCS: 93010 ==

== ENCOUNTER 2023-12-04 16:30 | Outpatient (BNV) | payer MEDICARE, MEDICAID, SELFPAY | END 2023-12-05 07:00 | PROVIDERS: Admitting Provider Physician Assistant; Emergency Provider Emergency Medicine; PCP Internal Medicine; Visit Provider Internal Medicine Cardiovascular Disease | DX: I42.2 Other hypertrophic cardiomyopathy (principal); E65 Localized adiposity | CPT/HCPCS: 93306 ==

== ENCOUNTER → 2023-12-04 16:30 | Outpatient (BNV) | payer MEDICARE, MEDICAID, SELFPAY | PROVIDERS: Admitting Provider Physician Assistant; Emergency Provider Emergency Medicine; PCP Internal Medicine; Visit Provider Internal Medicine Cardiovascular Disease | DX: I48.92 Unspecified atrial flutter (principal) | CPT/HCPCS: 99223; 99233 ==

== ENCOUNTER → 2023-12-04 16:30 | Outpatient (BNV) | payer MEDICARE, MEDICAID, SELFPAY | PROVIDERS: Admitting Provider Physician Assistant; Emergency Provider Emergency Medicine; PCP Internal Medicine; Visit Provider Physician Assistant | DX: I48.92 Unspecified atrial flutter (principal) | CPT/HCPCS: 99223; 99232; 99239 ==